=== PATIENT | male | born 1940 ===

== ENCOUNTER 2017-07-18 16:55 | Emergency (ER) | payer MEDICARE, OTHER ==
[2017-07-18 16:55] VITALS: BMI 30.2
[2017-07-18 17:18] VITALS: BP 147/85; PULSE 109; RESP 16; TEMP 98.2; O2SAT 99
--- NOTE | 2017-07-18 18:17 | ED PDOC ---
HPI: CCC, URI, Sore Throat Time Seen by Provider: 07/18/17 17:58 Chief Complaint (Nursing): Cough, Cold, Congestion Chief Complaint (Provider): COUGH History Per: Patient Additional Complaint(s): To ED for evaluation of cough, general body aches, fever x 1 week. Last took Tylenol at 3pm. Also taking OTC cough medication without relief. Past Medical History Reviewed: Nursing Documentation, Vital Signs Vital Signs: Last Vital Signs Temp 98.2 F 07/18/17 17:11 Pulse 109 H 07/18/17 17:11 Resp 16 07/18/17 17:11 BP 147/85 07/18/17 17:11 Pulse Ox 99 07/18/17 18:17 - Medical History PMH: Anxiety (No medication for anxiety prescribed by MD), Arthritis, Asthma, Bronchitis, COPD, Rheumatoid Arthritis Denies: CHF, HIV, HTN, Hypercholesterolemia, Hypothyroidism, Chronic Kidney Disease - Family History Family History: States: Unknown Family Hx - Living Arrangements Living Arrangements: With Family - Social History Current smoker - smoking cessation education provided: No Alcohol: Social Drugs: Denies - Home Medications Home Medications: Ambulatory Orders Medication Instructions Recorded Fluticasone/Salmeterol 100/50 1 - 2 puff INH DAILY PRN 03/24/14 [Advair Diskus 100/50] Montelukast [Singulair] 10 mg PO DAILY 06/28/14 Docusate [Colace] 100 mg PO DAILY #0 cap 05/25/15 Enoxaparin [Lovenox] 40 mg SC DAILY #0 syr 05/25/15 Lactulose [Enulose] 10 gm PO DAILY PRN #0 udc 05/25/15 Ondansetron [Zofran Inj] 4 mg IVP Q6H PRN 05/25/15 Pantoprazole [Protonix EC Tab] 40 mg PO DAILY #0 ect 05/25/15 Simethicone [Mylicon Chew Tab] 80 mg PO TID PRN 05/25/15 oxyCODONE/Acetaminophen [Percocet 2 tab PO Q4H PRN 05/25/15 5/325 mg Tab] Ferrous Sulfate [Feosol] 325 mg PO BID #0 tab 06/06/15 Furosemide [Lasix] 20 mg PO DAILY #0 tab 06/06/15 oxyCODONE/Acetaminophen [Percocet 1 tab PO Q6 PRN #16 tab 02/12/16 5/325 mg Tab] Azithromycin [Zithromax] 500 mg PO DAILY #6 tab 07/18/17 Methylprednisolone [Medrol Dose 4 mg PO DAILY #21 mg 07/18/17 Pack (21 tabs)] Promethazine HCl/Codeine 5 ml PO HS #80 ml 07/18/17 [Prometh-Codein 6.25-10 mg/5 ml] - Allergies Allergies/Adverse Reactions: Allergies Allergy/AdvReac Type Severity Reaction Status Date / Time No Known Allergies Allergy Verified 07/18/17 17:11 Review of Systems ROS Statement: Except As Marked, All Systems Reviewed And Found Negative ENT: Positive for: Nose Congestion Respiratory: Positive for: Cough Physical Exam - Reviewed Nursing Documentation Reviewed: Yes Vital Signs Reviewed: Yes - Physical Exam Appears: Positive for: Well, Non-toxic, No Acute Distress Head Exam: Positive for: ATRAUMATIC, NORMAL INSPECTION, NORMOCEPHALIC Skin: Positive for: Normal Color, Warm, DRY Eye Exam: Positive for: EOMI, Normal appearance, PERRL ENT: Positive for: Normal ENT Inspection Neck: Positive for: Normal, Painless ROM Cardiovascular/Chest: Positive for: Regular Rate, Rhythm Respiratory: Positive for: CNT, Normal Breath Sounds Gastrointestinal/Abdominal: Positive for: Normal Exam, Bowel Sounds, Soft Back: Positive for: Normal Inspection Extremity: Positive for: Normal ROM Neurologic/Psych: Positive for: Alert, Oriented - ECG O2 Sat by Pulse Oximetry: 99 Medical Decision Making Medical Decision Making: Flu (-) CXR: NAD, as read by PINKY Pt afebrile while in ED Pt educated on URI virus and supportive care measures discussed Advised to follow up with PMD, return to ED wit any concerns Disposition - Clinical Impression Clinical Impression: Upper respiratory infection - Patient ED Disposition Is Patient to be Admitted: No - Disposition Disposition: Routine/Home Disposition Time: 20:00 Condition: STABLE Prescriptions: Azithromycin [Zithromax] 500 mg PO DAILY #6 tab Methylprednisolone [Medrol Dose Pack (21 tabs)] 4 mg PO DAILY #21 mg Promethazine HCl/Codeine [Prometh-Codein 6.25-10 mg/5 ml] 5 ml PO HS #80 ml Instructions: Upper Respiratory Infection (ED) Forms: Gusto (Thai) Print Language: DIVEHI
--- NOTE | 2017-07-19 15:04 | RAD ---
HISTORY: fever and cough COMPARISON: 05/11/2015 TECHNIQUE: Chest PA and lateral FINDINGS: LUNGS: No active pulmonary disease. PLEURA: Chronic minimal blunting of both costophrenic angles. Likely pleural thickening. CARDIOVASCULAR: Normal. OSSEOUS STRUCTURES: No significant abnormalities. VISUALIZED UPPER ABDOMEN: Normal. OTHER FINDINGS: None. IMPRESSION: No active disease.
== END 2017-07-18 20:20 | disposition home or self-care (01) ==
LOC: H.ER 16:55
DX: J06.9 Acute upper respiratory infection, unspecified (principal); F41.9 Anxiety disorder, unspecified

== ENCOUNTER 2017-09-21 09:03 | Inpatient (IN) | payer MEDICARE ==
[2017-09-21 09:03] VITALS: BMI 30.2
[2017-09-21] MEDS ORDERED: Sodium Chloride 0.9% 1,000 ML IV STA (10:18)
--- NOTE | 2017-09-21 10:27 | ED PDOC ---
HPI: Abdomen Time Seen by Provider: 09/21/17 10:07 Chief Complaint (Nursing): GI Problem Chief Complaint (Provider): abdominal pain History Per: Patient History/Exam Limitations: no limitations Onset/Duration Of Symptoms: Days (1) Current Symptoms Are (Timing): Still Present Context: Food Severity: Moderate Location Of Pain/Discomfort: Epigastric, Periumbilical Quality Of Discomfort: Sharp Associated Symptoms: Nausea, Vomiting, Loss Of Appetite. denies: Diarrhea, Back Pain, Constipation, Urinary Symptoms Exacerbating Factors: Food Alleviating Factors: None Last Bowel Movement: Today Additional Complaint(s): 76yo male c/o sudden onset upper abdominal pain radiating to mid abdomen since this morning, associated w 3 episodes nonbloody vomiting, denies diarrhea, fever or syncope. (note told triage pain since thursday told MD pain since this morning). Past Medical History Reviewed: Historical Data, Nursing Documentation, Vital Signs Vital Signs: Last Vital Signs Temp 97.8 F 09/21/17 09:28 Pulse 67 09/21/17 09:28 Resp 20 09/21/17 09:28 BP 172/92 H 09/21/17 09:28 Pulse Ox 96 09/21/17 16:19 - Medical History PMH: Anxiety (No medication for anxiety prescribed by MD), Arthritis, Asthma, Bronchitis, COPD, Rheumatoid Arthritis Denies: CHF, HIV, HTN, Hypercholesterolemia, Hypothyroidism, Chronic Kidney Disease - Surgical History Other surgeries: hip/knee/ bleeding ulcer 40+yrs ago - Family History Family History: States: Unknown Family Hx - Social History Current smoker - smoking cessation education provided: No - Home Medications Home Medications: Ambulatory Orders Medication Instructions Recorded Fluticasone/Salmeterol 100/50 1 - 2 puff INH DAILY PRN 03/24/14 [Advair Diskus 100/50] Montelukast [Singulair] 10 mg PO DAILY 06/28/14 Docusate [Colace] 100 mg PO DAILY #0 cap 05/25/15 Enoxaparin [Lovenox] 40 mg SC DAILY #0 syr 05/25/15 Lactulose [Enulose] 10 gm PO DAILY PRN #0 udc 05/25/15 Ondansetron [Zofran Inj] 4 mg IVP Q6H PRN 05/25/15 Pantoprazole [Protonix EC Tab] 40 mg PO DAILY #0 ect 05/25/15 Simethicone [Mylicon Chew Tab] 80 mg PO TID PRN 05/25/15 oxyCODONE/Acetaminophen [Percocet 2 tab PO Q4H PRN 05/25/15 5/325 mg Tab] Ferrous Sulfate [Feosol] 325 mg PO BID #0 tab 06/06/15 Furosemide [Lasix] 20 mg PO DAILY #0 tab 06/06/15 oxyCODONE/Acetaminophen [Percocet 1 tab PO Q6 PRN #16 tab 02/12/16 5/325 mg Tab] Azithromycin [Zithromax] 500 mg PO DAILY #6 tab 07/18/17 Methylprednisolone [Medrol Dose 4 mg PO DAILY #21 mg 07/18/17 Pack (21 tabs)] Promethazine HCl/Codeine 5 ml PO HS #80 ml 07/18/17 [Prometh-Codein 6.25-10 mg/5 ml] - Allergies Allergies/Adverse Reactions: Allergies Allergy/AdvReac Type Severity Reaction Status Date / Time No Known Allergies Allergy Verified 07/18/17 17:11 Review of Systems Constitutional: Positive for: Malaise. Negative for: Fever, Chills ENT: Negative for: Throat Pain Cardiovascular: Negative for: Chest Pain Respiratory: Negative for: Cough Gastrointestinal: Positive for: Nausea, Vomiting, Abdominal Pain. Negative for : Diarrhea, Constipation Genitourinary Male: Negative for: Dysuria, Incontinence Musculoskeletal: Negative for: Neck Pain Skin: Negative for: Rash, Lesions Neurological: Negative for: Weakness, Numbness, Confusion Psych: Negative for: Depression Physical Exam - Reviewed Nursing Documentation Reviewed: Yes Vital Signs Reviewed: Yes - Physical Exam Appears: Positive for: Uncomfortable (vomiting) Head Exam: Positive for: ATRAUMATIC, NORMAL INSPECTION, NORMOCEPHALIC Skin: Positive for: Normal Color, Warm, DRY Eye Exam: Positive for: EOMI, Normal appearance, PERRL ENT: Positive for: Normal ENT Inspection Neck: Positive for: Normal, Painless ROM Cardiovascular/Chest: Positive for: Regular Rate, Rhythm Respiratory: Positive for: CNT, Normal Breath Sounds Gastrointestinal/Abdominal: Positive for: Soft, Tenderness (upper abd tenderness ) Back: Positive for: Normal Inspection Extremity: Positive for: Other (chronic loss ROM LE). Negative for: Tenderness Neurologic/Psych: Positive for: Alert, Oriented. Negative for: Motor/Sensory Deficits - Laboratory Results Result Diagrams: 09/21/17 11:00 09/21/17 11:00 Urine dip results: Positive for: Blood. Negative for: Leukocyte Esterase - ECG O2 Sat by Pulse Oximetry: 96 Medical Decision Making Medical Decision Making: workup for upper abd pain w vomiting initiated labs reviewed, clinically unremarkable patient required repeat doses of morphine for pain control Pepcid, antiemetic also ordered, IVF bolus arranged. CT abd pelv obtained This CT exam was performed using one or more of the following dose reduction techniques: Automated exposure control, adjustment of the mA and/or kV according to patient size, and/or use of iterative reconstruction technique. 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 LIVER: Unremarkable. No gross lesion or ductal dilatation. GALLBLADDER AND BILE DUCTS: Unremarkable. PANCREAS: Unremarkable. No gross lesion or ductal dilatation. SPLEEN: Unremarkable. ADRENALS: Unremarkable. No mass. KIDNEYS AND URETERS: Unremarkable. No hydronephrosis. No solid mass. VASCULATURE: Unremarkable. No aortic aneurysm. BOWEL: Diverticulosis without an acute inflammatory component or other associated pathologic process. APPENDIX: Normal appendix. PERITONEUM: Unremarkable. No free fluid. No free air. LYMPH NODES: Unremarkable. No enlarged lymph nodes. BLADDER: Unremarkable. REPRODUCTIVE: Unremarkable. BONES: No acute fracture. OTHER FINDINGS: None. IMPRESSION: No acute findings related to/accounting for the clinical presentation. Additional benign and/or incidental findings described above patient required additional dose morphine for pain Protonix also ordered Given intractable pain, age, multiple doses narcotics to satisfy pain, will place Obs [facility]. D/w Dr Flores 350pm, requested Dr Leeanna batres, called placed for awareness. Disposition - Clinical Impression Clinical Impression: Abdominal pain - Patient ED Disposition Is Patient to be Admitted: Yes Counseled Patient/Family Regarding: Studies Performed, Diagnosis - Disposition Disposition Time: 15:01 Condition: FAIR - Pt Status Changed To: Hospital Disposition Of: Observation
[2017-09-21 11:11] LABS: BASO % 0.5 % (0.0-2.0); EOS # 0.1 K/uL (0.0-0.7); EOS % 0.8 % (0.0-4.0); HEMOGLOBIN 15.7 g/dL (12.0-18.0); LYMPH # 1.1 K/uL (1.0-4.3); LYMPH % 10.8 % (20.0-40.0); MEAN CELL VOLUME 94.1 fl (80.0-94.0); MEAN CORPUSCULAR HEMOGLOBIN 32.3 pg (27.0-31.0); MEAN CORPUSCULAR HGB CONC 34.3 g/dL (33.0-37.0); MEAN PLATELET VOLUME 8.7 fl (7.2-11.7); MONO # 0.6 K/uL (0.0-0.8); MONO % 5.6 % (0.0-10.0); NEUT # 8.4 K/uL (1.8-7.0); NEUT % 82.3 % (50.0-75.0); NRBC % 0.1 % (0.0-0.0); RBC 4.87 Mil/uL (4.40-5.90); RED CELL DISTRIBUTION WIDTH 14.7 % (11.5-14.5); WHITE BLOOD COUNT 10.1 K/uL (4.8-10.8)
[2017-09-21 11:14] LABS: GFR AFRICAN-AMERICAN > 60; GFR NON-AFRICAN AMERICAN > 60; LIPASE 78 U/L (23-300)
[2017-09-21] MEDS ORDERED: Iohexol 240 (50 ml) PO ONE (11:35)
--- NOTE | 2017-09-21 11:35 | CARD ---
APPROVED REPORT EKG Measurement Heart [id number] <Conclusion> Normal sinus rhythm with sinus arrhythmia Normal ECG
[2017-09-21] MEDS ORDERED: Iohexol 240 (50 ml) ONE (11:45)
[2017-09-21 12:25] LABS: CALCIUM 8.8 mg/dL (8.4-10.2)
[2017-09-21 12:26] LABS: ALBUMIN 4.2 g/dL (3.5-5.0); ALT/SGPT 66 U/L (21-72); AST/SGOT 50 U/L (17-59); BLOOD UREA NITROGEN 16 mg/dl (9-20)
[2017-09-21] MEDS ORDERED: Iohexol 300 100 ML IJ ONE (12:56)
--- NOTE | 2017-09-21 14:36 | CT ---
PROCEDURE: CT Abdomen and Pelvis with contrast HISTORY: Upper abdominal pain, vomiting COMPARISON: None. TECHNIQUE: Contrast dose: 98 cc Omnipaque 300. Radiation dose: Total exam DLP = 1145.32 mGy-cm. This CT exam was performed using one or more of the following dose reduction techniques: Automated exposure control, adjustment of the mA and/or kV according to patient size, and/or use of iterative reconstruction technique. 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 LIVER: Unremarkable. No gross lesion or ductal dilatation. GALLBLADDER AND BILE DUCTS: Unremarkable. PANCREAS: Unremarkable. No gross lesion or ductal dilatation. SPLEEN: Unremarkable. ADRENALS: Unremarkable. No mass. KIDNEYS AND URETERS: Unremarkable. No hydronephrosis. No solid mass. VASCULATURE: Unremarkable. No aortic aneurysm. BOWEL: Diverticulosis without an acute inflammatory component or other associated pathologic process. APPENDIX: Normal appendix. PERITONEUM: Unremarkable. No free fluid. No free air. LYMPH NODES: Unremarkable. No enlarged lymph nodes. BLADDER: Unremarkable. REPRODUCTIVE: Unremarkable. BONES: No acute fracture. OTHER FINDINGS: None. IMPRESSION: No acute findings related to/accounting for the clinical presentation. Additional benign and/or incidental findings described above.
--- NOTE | 2017-09-21 17:00 | CP.PCM.CON ---
History of Present Illness - History of Present Illness History of Present Illness: GI Fellow PGY 4 consult Note This is a 76yM with pmhx of RA, PUD with GI bleed in 1963, Asthma/COPD, Chronic opioid use presenting with complaints of sudden onset of epigastric pain. Pt reports no prior hx of abdominal pain, now with acute epigastric stabbing pain, radiating to back and throughout the abdomen. Pt was given IV morphine with no relief. Pt also had 3 episodes of vomiting, nonbloody in ER, pt reports he vomited his dinner which consisted of rice and beans. No one else is sick around him, it was a home cooked meal. No recent travel or abx use. Denies any diarrhea, constipation, hematemesis, rectal bleeding. He takes Ibuprofen 2 tabs weekly for many years and reports taking omeprazole daily. He endorses a hx of GI bleeding requiring intubation and was medically treated with no surgical intervention. Pt is a poor historian but reports EGD/Colonoscopy many years ago at [facility] but does not remember the results, denies hx of h.pylori. ROS: A 12 pt ROS was negative except as above PmHx: As stated above PsHx: Denies SHx: denies tobacco, hx of heavy etoh but quit 20yrs ago, denies drugs FHx: denies colon cancer Past Patient History - Past Medical History & Family History Past Medical History?: Yes - Past Social History Smoking Status: Never Smoked - CARDIAC Hx Congestive Heart Failure: No Hx Hypercholesterolemia: No Hx Hypertension: No - PULMONARY Hx Asthma: Yes Hx Bronchitis: Yes Hx Chronic Obstructive Pulmonary Disease (COPD): Yes - NEUROLOGICAL Hx Neurological Disorder: No - HEENT Other/Comment: Allergic Rhinitis - RENAL Hx Chronic Kidney Disease: No - ENDOCRINE/METABOLIC Hx Hypothyroidism: No - HEMATOLOGICAL/ONCOLOGICAL Hx Human Immunodeficiency Virus (HIV): No - INTEGUMENTARY Hx Dermatological Problems: No - MUSCULOSKELETAL/RHEUMATOLOGICAL Hx Arthritis: Yes Hx Rheumatoid Arthritis: Yes - GASTROINTESTINAL Hx Gastrointestinal Disorders: Yes Hx Colitis: Yes Hx Gastroesophageal Reflux: Yes - GENITOURINARY/GYNECOLOGICAL Hx Genitourinary Disorders: Yes - PSYCHIATRIC Hx Anxiety: Yes (No medication for anxiety prescribed by MD) - SURGICAL HISTORY Hx Joint Replacement: Yes (RT TOTAL HIP REPLACEMENT JUL 1994. LEFT TOTAL KNEE REPLACEMENT DECEMBER 1994) Hx Orthopedic Surgery: Yes (Right THR 1994, Left TKR 1994) Other/Comment: - HEMORROIDECTOMY X 2. - NASAL POLYPECTOMY. - EPIDURAL INJECTION X. 4. - RT AND LT TOES SURGERIES. - REVISION RIGHT THR 05/21/2015 - ANESTHESIA Hx Anesthesia: Yes Hx Anesthesia Reactions: No Hx Malignant Hyperthermia: No Meds Allergies/Adverse Reactions: Allergies Allergy/AdvReac Type Severity Reaction Status Date / Time No Known Allergies Allergy Verified 07/18/17 17:11 - Medications Medications: Current Medications Ondansetron HCl (Zofran Inj) 4 mg IVP Q6 PRN PRN Reason: Nausea/Vomiting Pantoprazole Sodium (Protonix Inj) 40 mg IVP DAILY RJ Sucralfate (Carafate Tab) 1 gm PO QID RJ Physical Exam - Constitutional Appears: Non-toxic, No Acute Distress - Head Exam Head Exam: ATRAUMATIC, NORMAL INSPECTION, NORMOCEPHALIC - Eye Exam Eye Exam: EOMI, Normal appearance, PERRL Pupil Exam: PERRL - ENT Exam ENT Exam: Mucous Membranes Moist, Normal Exam - Neck Exam Neck exam: Positive for: Full Rom, Normal Inspection - Respiratory Exam Respiratory Exam: Clear to Auscultation Bilateral, NORMAL BREATHING PATTERN - Cardiovascular Exam Cardiovascular Exam: REGULAR RHYTHM, RRR, +S1, +S2 - GI/Abdominal Exam GI & Abdominal Exam: Normal Bowel Sounds, Soft, Tenderness. absent: Distended, Firm, Guarding, Organomegaly, Rigid - Rectal Exam Rectal Exam: Deferred - Extremities Exam Extremities exam: Positive for: full ROM, normal inspection - Back Exam Back exam: NORMAL INSPECTION - Neurological Exam Neurological exam: Alert, Oriented x3 - Psychiatric Exam Psychiatric exam: Normal Affect, Normal Mood - Skin Skin Exam: Dry, Intact, Normal Color, Warm Results - Vital Signs Recent Vital Signs: Last Vital Signs Temp 97.8 F 09/21/17 09:28 Pulse 67 09/21/17 09:28 Resp 20 09/21/17 09:28 BP 172/92 H 09/21/17 09:28 Pulse Ox 96 09/21/17 16:46 - Labs Result Diagrams: 09/21/17 11:00 09/21/17 11:00 Labs: Laboratory Results - last 24 hr 09/21/17 09/21/17 09/21/17 11:00 11:00 15:12 WBC 10.1 RBC 4.87 Hgb 15.7 Hct 45.9 MCV 94.1 H D MCH 32.3 H MCHC 34.3 RDW 14.7 H Plt Count 175 D MPV 8.7 Neut % (Auto) 82.3 H Lymph % (Auto) 10.8 L Andrews % (Auto) 5.6 Eos % (Auto) 0.8 Baso % (Auto) 0.5 Neut # (Auto) 8.4 H Lymph # (Auto) 1.1 Andrews # (Auto) 0.6 Eos # (Auto) 0.1 Baso # (Auto) 0.0 Sodium 144 Potassium 5.0 Chloride 103 Carbon Dioxide 26 Anion Gap 20 BUN 16 Creatinine 1.0 Est GFR ( Amer) > 60 Est GFR (Non-Af Amer) > 60 Random Glucose 148 H Calcium 8.8 Total Bilirubin 0.7 AST 50 ALT 66 Alkaline Phosphatase 94 Troponin I < 0.0120 Total Protein 8.3 H Albumin 4.2 Globulin 4.1 H Albumin/Globulin Ratio 1.0 Lipase 78 Assessment & Plan - Assessment and Plan (Free Text) Assessment: This is a 76yM presenting with complaints of abdominal pain. 1. Abdominal pain 2. Nausea and vomiting 3. Hx of PUD with GI bleed Plan: -Continue supportive care with pain control and anti-emetics -Abdominal pain likely from PUD with NSAID use and hx of PUD maybe 2/2 H.pylori -Avoid NSAIDs -Will order IV PPI daily, carafate qid -CT imaging reviewed with acute GI pathology -Order Abd US to r/o gallstones -Clear liquid diet -NPO after midnight for possible EGD if continues to have abdominal pain -IVF hydration -Bowel regimen with miralax daily with pain medication -Will continue to follow closely Discussed case with Dr. Durán and he agrees with the above mentioned plan of care.
[2017-09-21 17:12] LABS: URINE BILIRUBIN NEGATIVE (NEGATIVE); URINE BLOOD NEGATIVE (NEGATIVE); URINE CLARITY CLEAR (Clear); URINE COLOR STRAW (YELLOW); URINE GLUCOSE (UA) 150 mg/dL (Normal); URINE LEUKOCYTE ESTERASE NEG Leu/uL (Negative); URINE PROTEIN NEGATIVE (NEGATIVE); URINE UROBILINOGEN 0.2-1.0 mg/dL (0.2-1.0)
[2017-09-21] MEDS: POLYETHYLENE GLYCOL 3350 17 GM/Dose PACKET PO SCH (18:36)
[2017-09-21] MEDS ORDERED: Albuterol-Ipratrop 3 mg / 0.5 (3 ml) UD INH PRN (21:38)
[2017-09-21] MEDS ORDERED: Hydrocortisone 2.5% (Rectal) CREAM PR PRN (21:41)
--- NOTE | 2017-09-21 22:11 | CP.PCM.HP ---
History of Present Illness - History of Present Illness History of Present Illness: 76 y/o M, multiple chronic medical condition including Hx of PUD with GI bleeding in 1963, came to ER [facility], today 09/21/17 to be evaluated for non alleviated abdominal pain that began very mild 2 days [employer], with sudden worsening onset of pain on DOA. Pt c/o of worsening generalized abdominal pain in AM DOA, more prominent to mid abdomen, pain described as sharp, stabbing, moderate to severe intensity 7:10, associated to nausea, vomiting (non bloody, non bilious) and radiated to back. Worsening symptoms: Pt vomiting x3 while in the ER, chronic body pain 2nd to R/ A, O/A. Hx of COPD with SOB on and off. Aggravated factor: Food, movements/exercise. Pt denied: Constipation, rectal bleeding, urinary symptoms, fever, chills, dizziness, syncope, CP, palpitations, cough, sick contact, recent travel out of [facility]. Abd/Pelv. CT: No acute findings. EKG: Normal sinus rhythm with sinus arrhythmia. Present on Admission - Present on Admission Any Indicators Present on Admission: No Review of Systems - Constitutional Constitutional: Malaise - EENT Eyes: Requires Corrective Lenses Ears: Other (negative) Nose/Mouth/Throat: Other (negative) - Cardiovascular Cardiovascular: Other (negative) - Respiratory Respiratory: Other (negative) - Gastrointestinal Gastrointestinal: Abdominal Pain, Nausea, Vomiting - Genitourinary Genitourinary: Other (negative) - Musculoskeletal Musculoskeletal: Arthralgias, Back Pain - Integumentary Integumentary: Other (negative) - Neurological Neurological: Other (negative) - Psychiatric Psychiatric: Other (negative) - Endocrine Endocrine: Other (negative) - Hematologic/Lymphatic Hematologic: Other (negative) Past Patient History - Past Medical History & Family History Past Medical History?: Yes Pertinent Family History: Unknown - Past Social History Smoking Status: Never Smoked Alcohol: Other (heavy ETHO 20 yrs ago.) Drugs: Denies - CARDIAC Hx Cardiac Disorders: No Hx Congestive Heart Failure: No Hx Hypercholesterolemia: No Hx Hypertension: No - PULMONARY Hx Respiratory Disorders: Yes Hx Asthma: Yes Hx Bronchitis: Yes Hx Chronic Obstructive Pulmonary Disease (COPD): Yes - NEUROLOGICAL Hx Neurological Disorder: No - HEENT Hx HEENT Problems: Yes Other/Comment: Allergic Rhinitis - RENAL Hx Chronic Kidney Disease: No - ENDOCRINE/METABOLIC Hx Endocrine Disorders: No Hx Hypothyroidism: No - HEMATOLOGICAL/ONCOLOGICAL Hx Blood Disorders: No Hx Human Immunodeficiency Virus (HIV): No - INTEGUMENTARY Hx Dermatological Problems: No - MUSCULOSKELETAL/RHEUMATOLOGICAL Hx Musculoskeletal Disorders: Yes Hx Arthritis: Yes Hx Back Pain: Yes Hx Rheumatoid Arthritis: Yes - GASTROINTESTINAL Hx Gastrointestinal Disorders: Yes Hx Colitis: Yes Hx Constipation: Yes Hx Gastroesophageal Reflux: Yes - GENITOURINARY/GYNECOLOGICAL Hx Genitourinary Disorders: No - PSYCHIATRIC Hx Psychophysiologic Disorder: Yes Hx Anxiety: Yes (No medication for anxiety prescribed by MD) - SURGICAL HISTORY Hx Surgeries: Yes Hx Joint Replacement: Yes (RT TOTAL HIP REPLACEMENT JUL 1994. LEFT TOTAL KNEE REPLACEMENT DECEMBER 1994) Hx Orthopedic Surgery: Yes (Right THR 1994, Left TKR 1994) Other/Comment: - HEMORROIDECTOMY X 2. - NASAL POLYPECTOMY. - EPIDURAL INJECTION X. 4. - RT AND LT TOES SURGERIES. - REVISION RIGHT THR 05/21/2015 - ANESTHESIA Hx Anesthesia: Yes Hx Anesthesia Reactions: No Hx Malignant Hyperthermia: No Meds Allergies/Adverse Reactions: Allergies Allergy/AdvReac Type Severity Reaction Status Date / Time No Known Allergies Allergy Verified 07/18/17 17:11 Physical Exam - Constitutional Appears: No Acute Distress - Head Exam Head Exam: NORMAL INSPECTION - Eye Exam Eye Exam: PERRL - ENT Exam ENT Exam: Normal Exam - Neck Exam Neck exam: Positive for: Normal Inspection - Respiratory Exam Respiratory Exam: Decreased Breath Sounds (at bases) - Cardiovascular Exam Cardiovascular Exam: REGULAR RHYTHM - GI/Abdominal Exam GI & Abdominal Exam: Normal Bowel Sounds, Soft, Tenderness (RUQ) - Extremities Exam Extremities exam: Positive for: tenderness (mild R-L hip) - Back Exam Back exam: tenderness (L-S) - Neurological Exam Neurological exam: Alert, CN II-XII Intact, Oriented x3 - Psychiatric Exam Psychiatric exam: Normal Mood - Skin Skin Exam: Warm Results - Vital Signs Recent Vital Signs: Last Vital Signs Temp 99.2 F 09/21/17 20:02 Pulse 95 H 09/21/17 20:02 Resp 20 09/21/17 20:02 BP 163/94 H 09/21/17 20:02 Pulse Ox 96 09/21/17 20:02 reviewed Hali - Labs Result Diagrams: 09/23/17 05:45 09/22/17 06:00 Labs: Laboratory Results - last 24 hr 09/21/17 09/21/17 09/21/17 11:00 11:00 15:12 WBC 10.1 RBC 4.87 Hgb 15.7 Hct 45.9 MCV 94.1 H D MCH 32.3 H MCHC 34.3 RDW 14.7 H Plt Count 175 D MPV 8.7 Neut % (Auto) 82.3 H Lymph % (Auto) 10.8 L Posey % (Auto) 5.6 Eos % (Auto) 0.8 Baso % (Auto) 0.5 Neut # (Auto) 8.4 H Lymph # (Auto) 1.1 Posey # (Auto) 0.6 Eos # (Auto) 0.1 Baso # (Auto) 0.0 Sodium 144 Potassium 5.0 Chloride 103 Carbon Dioxide 26 Anion Gap 20 BUN 16 Creatinine 1.0 Est GFR ( Amer) > 60 Est GFR (Non-Af Amer) > 60 Random Glucose 148 H Calcium 8.8 Total Bilirubin 0.7 AST 50 ALT 66 Alkaline Phosphatase 94 Troponin I < 0.0120 Total Protein 8.3 H Albumin 4.2 Globulin 4.1 H Albumin/Globulin Ratio 1.0 Lipase 78 Urine Color Urine Clarity Urine pH Ur Specific [place] Urine Protein Urine Glucose (UA) Urine Ketones Urine Blood Urine Nitrate Urine Bilirubin Urine Urobilinogen Ur Leukocyte Esterase Urine RBC (Auto) Urine Microscopic WBC 09/21/17 16:40 WBC RBC Hgb Hct MCV MCH MCHC RDW Plt Count MPV Neut % (Auto) Lymph % (Auto) Posey % (Auto) Eos % (Auto) Baso % (Auto) Neut # (Auto) Lymph # (Auto) Posey # (Auto) Eos # (Auto) Baso # (Auto) Sodium Potassium Chloride Carbon Dioxide Anion Gap BUN Creatinine Est GFR ( Amer) Est GFR (Non-Af Amer) Random Glucose Calcium Total Bilirubin AST ALT Alkaline Phosphatase Troponin I Total Protein Albumin Globulin Albumin/Globulin Ratio Lipase Urine Color Straw Urine Clarity Clear Urine pH 7.0 Ur Specific [place] 1.026 Urine Protein Negative Urine Glucose (UA) 150 Urine Ketones Negative Urine Blood Negative Urine Nitrate Negative Urine Bilirubin Negative Urine Urobilinogen 0.2-1.0 Ur Leukocyte Esterase Neg Urine RBC (Auto) 3 Urine Microscopic WBC < 1 reviewed J.P. - EKG Data EKG comments: reviewed J.P. - Imaging and Cardiology CT scan - abdomen Status: Report reviewed by me (Hali) CT scan - pelvis Status: Report reviewed by me (Hali) Assessment & Plan (1) Abdominal pain Status: Acute Priority: High (2) Nausea & vomiting Status: Acute Priority: High (3) History of peptic ulcer disease Status: Chronic (4) Lumbago Status: Chronic Priority: High (5) RA (rheumatoid arthritis) Status: Chronic Priority: High (6) History of COPD Status: Chronic Priority: Medium - Assessment and Plan (Free Text) Plan: F/U Abd. U-S, Continue Carafate, Protonix, Morphine, Duoneb Tx, Zofran and rest of Tx. NPO after midnight for possible EGD tomorrow. GI consult appreciated. - Date & Time Date: 09/21/17 Time: 14:00
[2017-09-22 06:11] LABS: BASO # 0.1 K/uL (0.0-0.2); BASO % 0.6 % (0.0-2.0); EOS % 0.2 % (0.0-4.0); HEMOGLOBIN 15.2 g/dL (12.0-18.0); LYMPH # 1.6 K/uL (1.0-4.3); LYMPH % 9.6 % (20.0-40.0); MEAN CELL VOLUME 92.6 fl (80.0-94.0); MEAN CORPUSCULAR HEMOGLOBIN 31.3 pg (27.0-31.0); MEAN CORPUSCULAR HGB CONC 33.8 g/dL (33.0-37.0); MEAN PLATELET VOLUME 7.6 fl (7.2-11.7); MONO # 1.7 K/uL (0.0-0.8); MONO % 9.8 % (0.0-10.0); NEUT # 13.5 K/uL (1.8-7.0); NEUT % 79.8 % (50.0-75.0); PLATELET COUNT 158 K/uL (130-400); RBC 4.85 Mil/uL (4.40-5.90); RED CELL DISTRIBUTION WIDTH 14.9 % (11.5-14.5); WHITE BLOOD COUNT 16.9 K/uL (4.8-10.8)
[2017-09-22 06:20] LABS: INR 1.2 (0.9-1.2); PARTIAL THROMBOPLASTIN TIME 29.8 Seconds (25.6-37.1); PROTHROMBIN TIME 13.1 Seconds (9.8-13.1)
[2017-09-22 06:34] LABS: LDL CHOLESTEROL 98 mg/dL (0-129)
[2017-09-22 06:35] LABS: ALB/GLOB RATIO 1.1 (1.0-2.1); ALBUMIN 4.1 g/dL (3.5-5.0); ALT/SGPT 69 U/L (21-72); AST/SGOT 44 U/L (17-59); BLOOD UREA NITROGEN 12 mg/dl (9-20); CALCIUM 8.7 mg/dL (8.4-10.2); GFR AFRICAN-AMERICAN > 60; GFR NON-AFRICAN AMERICAN > 60; HDL CHOLESTEROL 45 MG/DL (30-70)
[2017-09-22 06:36] LABS: T4 7.24 ug/dl (5.5-11.0)
[2017-09-22] MEDS: Budesonide 0.5 mg/2 ml Inhal Susp UD INH SCH ×2 (08:01→19:02)
--- NOTE | 2017-09-22 08:16 | CP.PCM.PN ---
Subjective - Date & Time of Evaluation Date of Evaluation: 09/22/17 Time of Evaluation: 07:55 - Subjective Subjective: GI Fellow PGY4 Progress Note Pt seen and evaluated at bedside, pt reports feeling a little better this am with decreased epigastric abdominal pain but reports RUQ pain. Pt was able to tolerate clear liquids last night with no further N/V. Pt took IV morphine last night and takes oxycodone 5mg bid at home for arthritis pain. ROS: A 12pt ROS was negative except as above. Objective - Vital Signs/Intake and Output Vital Signs (last 24 hours): Temp Pulse Resp BP Pulse Ox 98.7 F 83 20 151/74 H 97 09/22/17 08:08 09/22/17 08:08 09/22/17 08:08 09/22/17 08:08 09/22/17 08:08 - Medications Medications: Current Medications Albuterol/Ipratropium (Duoneb 3 Mg/0.5 Mg (3 Ml) Ud) 3 ml INH RQ6 PRN PRN Reason: Shortness of Breath Budesonide (Pulmicort Respules) 0.5 mg INH RBID [facility] Last Admin: 09/22/17 08:01 Dose: 0.5 mg Hydrocortisone (Anusol-Hc) 1 applic [place] Q12 PRN PRN Reason: Hemorrhoids Morphine Sulfate (Morphine) 2 mg IVP Q4 PRN PRN Reason: Pain, severe (8-10) Last Admin: 09/21/17 22:49 Dose: 2 mg Ondansetron HCl (Zofran Inj) 4 mg IVP Q6 PRN PRN Reason: Nausea/Vomiting Last Admin: 09/21/17 19:54 Dose: 4 mg Pantoprazole Sodium (Protonix Inj) 40 mg IVP DAILY [facility] Polyethylene Glycol (Miralax) 17 gm PO QPM [facility] Last Admin: 09/21/17 18:36 Dose: 17 gm Sucralfate (Carafate Tab) 1 gm PO ACHS [facility] Last Admin: 09/22/17 06:29 Dose: 1 gm - Labs Labs: 09/22/17 06:00 09/22/17 06:00 PT 13.1 Seconds (9.8-13.1) 09/22/17 06:00 INR 1.2 (0.9-1.2) 09/22/17 06:00 APTT 29.8 Seconds (25.6-37.1) 09/22/17 06:00 - Constitutional Appears: Non-toxic, No Acute Distress - Head Exam Head Exam: ATRAUMATIC, NORMAL INSPECTION, NORMOCEPHALIC - Eye Exam Eye Exam: EOMI, Normal appearance, PERRL Pupil Exam: NORMAL ACCOMODATION, PERRL - ENT Exam ENT Exam: Mucous Membranes Moist - Neck Exam Neck Exam: Full ROM - Respiratory Exam Respiratory Exam: Clear to Ausculation Bilateral, NORMAL BREATHING PATTERN - Cardiovascular Exam Cardiovascular Exam: REGULAR RHYTHM, RRR, +S1, +S2 - GI/Abdominal Exam GI & Abdominal Exam: Soft, Tenderness, Normal Bowel Sounds. absent: Distended, Firm, Guarding, Rigid, Organomegaly - Extremities Exam Extremities Exam: Full ROM, Normal Inspection - Back Exam Back Exam: NORMAL INSPECTION - Neurological Exam Neurological Exam: Alert, Awake, Oriented x3 - Psychiatric Exam Psychiatric exam: Normal Affect, Normal Mood - Skin Skin Exam: Dry, Intact, Normal Color, Warm Assessment and Plan - Assessment and Plan (Free Text) Assessment: This is a 76yM presenting with complaints of abdominal pain. 1. Abdominal pain 2. Nausea and vomiting 3. Hx of PUD with GI bleed Plan: -Continue supportive care with pain control and anti-emetics -Clinically improving epigastric abdominal pain, brisa mild nausea and no vomiting -Abdominal pain likely from PUD with NSAID use and hx of PUD maybe 2/2 H.pylori -Avoid NSAIDs -Continue IV PPI daily, carafate qid -CT imaging reviewed with no acute GI pathology -Abd US pending r/o gallstones vs cholecystitis with elevated WBC, LFTs wnl -NPO, awaiting Abd us results which if negative and pt with persistent pain will plan for EGD tomorrow -If abdominal US negative can start clear liquids today -IVF hydration -Bowel regimen with miralax daily with pain medication -Will continue to follow closely Case discussed with Dr. Delgadillo who agrees with above mentioned plan of care.
--- NOTE | 2017-09-22 08:47 | RAD ---
PROCEDURE: CHEST RADIOGRAPH, 1 VIEW HISTORY: possible EGD tomorrow COMPARISON: 07/18/2017 FINDINGS: LUNGS: Clear. PLEURA: No pneumothorax or pleural fluid seen. CARDIOVASCULAR: Normal. OSSEOUS STRUCTURES: No significant abnormalities. VISUALIZED UPPER ABDOMEN: Normal. OTHER FINDINGS: None. IMPRESSION: No active disease.
[2017-09-22 11:29] LABS: BANDS 2 % (0-2); LYMPHOCYTE 5 % (20-50); MONOCYTE 7 % (0-10); NEUTROPHIL 83 % (42-75); REACTIVE LYMPHOCYTES 3 % (0-0); TOTAL CELLS COUNTED 100
[2017-09-22 11:30] LABS: ANISOCYTOSIS SLIGHT; PLATELET ESTIMATE NORMAL (NORMAL)
--- NOTE | 2017-09-22 12:09 | US ---
HISTORY: r/o gallstones COMPARISON: None. TECHNIQUE: Sonographic evaluation of the abdomen. FINDINGS: LIVER: Measures 13.2 cm. Diffusely increased echogenicity of the liver parenchyma. Consistent with fatty infiltration. Smooth contour. No mass. No biliary dilatation. Normal hepatopetal portal venous flow demonstrated. GALLBLADDER: Cholelithiasis. No mural thickening. Trace pericholecystic fluid common nonspecific. Negative sonographic White sign. COMMON BILE DUCT: Measures 5 mm. No stones. No dilatation. PANCREAS: Unremarkable as visualized. No mass. No ductal dilatation. RIGHT KIDNEY: Measures 10.9cm. Normal echogenicity. No calculus, mass, or hydronephrosis. LEFT KIDNEY: Measures 10.9cm. Normal echogenicity. No calculus, mass, or hydronephrosis. SPLEEN: Normal in size and contour. No mass. AORTA: No aneurysmal dilatation. IVC: Unremarkable. OTHER FINDINGS: None. IMPRESSION: Cholelithiasis. Trace pericholecystic fluid. No mural thickening or sonographic White sign. Nonspecific findings. Fatty infiltration of the liver. No additional abnormality.
--- NOTE | 2017-09-22 16:47 | CP.PCM.PN ---
Subjective - Date & Time of Evaluation Date of Evaluation: 09/22/17 Time of Evaluation: 11:50 - Subjective Subjective: F/U Abdominal pain RUQ pain, mild nausea Objective - Vital Signs/Intake and Output Vital Signs (last 24 hours): Temp Pulse Resp BP Pulse Ox 97.6 F 84 20 140/81 95 09/22/17 15:52 09/22/17 15:52 09/22/17 15:52 09/22/17 15:52 09/22/17 15:52 - Medications Medications: Current Medications Albuterol/Ipratropium (Duoneb 3 Mg/0.5 Mg (3 Ml) Ud) 3 ml INH RQ6 PRN PRN Reason: Shortness of Breath Budesonide (Pulmicort Respules) 0.5 mg INH RBID [facility] Last Admin: 09/22/17 08:01 Dose: 0.5 mg Hydrocortisone (Anusol-Hc) [address] Q12 PRN PRN Reason: Hemorrhoids Morphine Sulfate (Morphine) 2 mg IVP Q4 PRN PRN Reason: Pain, severe (8-10) Last Admin: 09/22/17 16:11 Dose: 2 mg Ondansetron HCl (Zofran Inj) 4 mg IVP Q6 PRN PRN Reason: Nausea/Vomiting Last Admin: 09/21/17 19:54 Dose: 4 mg Pantoprazole Sodium (Protonix Inj) 40 mg IVP DAILY [facility] Last Admin: 09/22/17 09:46 Dose: 40 mg Polyethylene Glycol (Miralax) 17 gm PO QPM [facility] Last Admin: 09/21/17 18:36 Dose: 17 gm Sucralfate (Carafate Tab) 1 gm PO ACHS [facility] Last Admin: 09/22/17 16:14 Dose: 1 gm - Labs Labs: 09/22/17 06:00 09/22/17 06:00 PT 13.1 Seconds (9.8-13.1) 09/22/17 06:00 INR 1.2 (0.9-1.2) 09/22/17 06:00 APTT 29.8 Seconds (25.6-37.1) 09/22/17 06:00 - Constitutional Appears: No Acute Distress - Head Exam Head Exam: NORMAL INSPECTION - Eye Exam Eye Exam: PERRL Pupil Exam: PERRL - ENT Exam ENT Exam: Normal Exam - Neck Exam Neck Exam: Normal Inspection - Respiratory Exam Respiratory Exam: Decreased Breath Sounds (at bases), Rhonchi (scattered) - Cardiovascular Exam Cardiovascular Exam: REGULAR RHYTHM - GI/Abdominal Exam GI & Abdominal Exam: Soft, Tenderness (RUQ), Normal Bowel Sounds - Extremities Exam Extremities Exam: Tenderness (mild R-L hip) - Back Exam Back Exam: tenderness (L-S) - Neurological Exam Neurological Exam: Alert, CN II-XII Intact, Oriented x3 - Psychiatric Exam Psychiatric exam: Normal Mood - Skin Skin Exam: Warm Assessment and Plan (1) Abdominal pain Status: Acute (2) Nausea & vomiting Status: Acute (3) History of peptic ulcer disease Status: Chronic (4) Lumbago Status: Chronic (5) RA (rheumatoid arthritis) Status: Chronic (6) History of COPD Status: Chronic - Assessment and Plan (Free Text) Plan: continue Morphine , Zofran and rest of treatment , f/u Abdominal US report , if Negative EGD in AM
[2017-09-22] MEDS: POLYETHYLENE GLYCOL 3350 17 GM/Dose PACKET PO SCH (19:18)
[2017-09-23 06:30] LABS: HEMOGLOBIN 14.7 g/dL (12.0-18.0); MEAN CELL VOLUME 93.4 fl (80.0-94.0); MEAN CORPUSCULAR HEMOGLOBIN 32.1 pg (27.0-31.0); MEAN CORPUSCULAR HGB CONC 34.4 g/dL (33.0-37.0); RBC 4.59 Mil/uL (4.40-5.90); RED CELL DISTRIBUTION WIDTH 14.9 % (11.5-14.5); WHITE BLOOD COUNT 16.9 K/uL (4.8-10.8)
[2017-09-23] MEDS: Budesonide 0.5 mg/2 ml Inhal Susp UD INH SCH ×2 (07:47→19:10)
[2017-09-23] MEDS: Dextrose 5%/0.45% NS 1,000 ML IV SCH (13:31)
--- NOTE | 2017-09-23 14:06 | CP.PCM.PN ---
Subjective - Date & Time of Evaluation Date of Evaluation: 09/23/17 Time of Evaluation: 12:30 - Subjective Subjective: F/U Cholelithiasis. Pt with abdominal pain RUQ, nausea, occasional dry cough. Objective - Vital Signs/Intake and Output Vital Signs (last 24 hours): Temp Pulse Resp BP Pulse Ox 98.5 F 88 20 116/65 97 09/23/17 08:26 09/23/17 08:26 09/23/17 08:26 09/23/17 08:26 09/23/17 08:26 - Medications Medications: Current Medications Albuterol/Ipratropium (Duoneb 3 Mg/0.5 Mg (3 Ml) Ud) 3 ml INH RQ6 PRN PRN Reason: Shortness of Breath Last Admin: 09/23/17 07:47 Dose: 3 ml Budesonide (Pulmicort Respules) 0.5 mg INH RBID [facility] Last Admin: 09/23/17 07:47 Dose: 0.5 mg Hydrocortisone (Anusol-Hc) 1 applic [place] Q12 PRN PRN Reason: Hemorrhoids Dextrose/Sodium Chloride (Dextrose 5%/0.45% Ns 1000 Ml) 1,000 mls @ 80 mls/hr IV .[id number] [facility] Stop: 09/24/17 13:17 Last Admin: 09/23/17 13:31 Dose: 80 mls/hr Morphine Sulfate (Morphine) 2 mg IVP Q4 PRN PRN Reason: Pain, severe (8-10) Last Admin: 09/23/17 04:59 Dose: 2 mg Ondansetron HCl (Zofran Inj) 4 mg IVP Q6 PRN PRN Reason: Nausea/Vomiting Last Admin: 09/21/17 19:54 Dose: 4 mg Pantoprazole Sodium (Protonix Inj) 40 mg IVP DAILY [facility] Last Admin: 09/23/17 09:27 Dose: 40 mg Polyethylene Glycol (Miralax) 17 gm PO QPM [facility] Last Admin: 09/22/17 19:18 Dose: 17 gm Sucralfate (Carafate Tab) 1 gm PO ACHS [facility] Last Admin: 09/23/17 13:18 Dose: Not Given - Labs Labs: 09/23/17 05:45 09/22/17 06:00 PT 13.1 Seconds (9.8-13.1) 09/22/17 06:00 INR 1.2 (0.9-1.2) 09/22/17 06:00 APTT 29.8 Seconds (25.6-37.1) 09/22/17 06:00 - Constitutional Appears: No Acute Distress - Head Exam Head Exam: NORMAL INSPECTION - Eye Exam Eye Exam: PERRL - ENT Exam ENT Exam: Normal Exam - Neck Exam Neck Exam: Normal Inspection - Respiratory Exam Respiratory Exam: Decreased Breath Sounds (at bases), Rhonchi (scattered) - Cardiovascular Exam Cardiovascular Exam: REGULAR RHYTHM - GI/Abdominal Exam GI & Abdominal Exam: Tenderness (RUQ), Normal Bowel Sounds - Extremities Exam Extremities Exam: Tenderness (mild R-L hip) - Back Exam Back Exam: tenderness (L-S) - Neurological Exam Neurological Exam: Alert, CN II-XII Intact, Oriented x3 - Psychiatric Exam Psychiatric exam: Normal Mood - Skin Skin Exam: Warm Assessment and Plan (1) Abdominal pain Status: Acute (2) Nausea & vomiting Status: Acute (3) History of peptic ulcer disease Status: Chronic (4) Lumbago Status: Chronic (5) RA (rheumatoid arthritis) Status: Chronic (6) History of COPD Status: Chronic (7) Cholelithiasis Status: Acute - Assessment and Plan (Free Text) Plan: Continue NPO, IV fluid. To have Hida Scan today, if negative EGD tomorrow, if positive may need Lab-[facility]
--- NOTE | 2017-09-23 16:23 | CP.PCM.PN ---
Subjective - Date & Time of Evaluation Date of Evaluation: 09/23/17 Time of Evaluation: 16:22 - Subjective Subjective: some pain overnight Objective - Vital Signs/Intake and Output Vital Signs (last 24 hours): Temp Pulse Resp BP Pulse Ox 98.5 F 88 20 116/65 97 09/23/17 08:26 09/23/17 08:26 09/23/17 08:26 09/23/17 08:26 09/23/17 08:26 - Medications Medications: Current Medications Albuterol/Ipratropium (Duoneb 3 Mg/0.5 Mg (3 Ml) Ud) 3 ml INH RQ6 PRN PRN Reason: Shortness of Breath Last Admin: 09/23/17 07:47 Dose: 3 ml Budesonide (Pulmicort Respules) 0.5 mg INH RBID [facility] Last Admin: 09/23/17 07:47 Dose: 0.5 mg Hydrocortisone (Anusol-Hc) 1 applic [place] Q12 PRN PRN Reason: Hemorrhoids Dextrose/Sodium Chloride (Dextrose 5%/0.45% Ns 1000 Ml) 1,000 mls @ 80 mls/hr IV .[id number] [facility] Stop: 09/24/17 13:17 Last Admin: 09/23/17 13:31 Dose: 80 mls/hr Morphine Sulfate (Morphine) 2 mg IVP Q4 PRN PRN Reason: Pain, severe (8-10) Last Admin: 09/23/17 04:59 Dose: 2 mg Ondansetron HCl (Zofran Inj) 4 mg IVP Q6 PRN PRN Reason: Nausea/Vomiting Last Admin: 09/21/17 19:54 Dose: 4 mg Pantoprazole Sodium (Protonix Inj) 40 mg IVP DAILY [facility] Last Admin: 09/23/17 09:27 Dose: 40 mg Polyethylene Glycol (Miralax) 17 gm PO QPM [facility] Last Admin: 09/22/17 19:18 Dose: 17 gm Sucralfate (Carafate Tab) 1 gm PO ACHS [facility] Last Admin: 09/23/17 13:18 Dose: Not Given - Labs Labs: 09/23/17 05:45 09/22/17 06:00 PT 13.1 Seconds (9.8-13.1) 09/22/17 06:00 INR 1.2 (0.9-1.2) 09/22/17 06:00 APTT 29.8 Seconds (25.6-37.1) 09/22/17 06:00 - Head Exam Head Exam: NORMOCEPHALIC - Neck Exam Neck Exam: Normal Inspection - Respiratory Exam Respiratory Exam: Clear to Ausculation Bilateral, NORMAL BREATHING PATTERN - Cardiovascular Exam Cardiovascular Exam: REGULAR RHYTHM - GI/Abdominal Exam GI & Abdominal Exam: Soft, Tenderness, Normal Bowel Sounds Assessment and Plan - Assessment and Plan (Free Text) Assessment: 76 yo male with abd pain if HIDA negative, will plan for egd if HIDA positive, will consult surgery
--- NOTE | 2017-09-23 16:42 | NM ---
PROCEDURE: Nuclear Medicine Hepatobiliary Scan HISTORY: Cholelithiasis COMPARISON: 09/21/2017. Abdominal ultrasound TECHNIQUE: 5.82 mCi of technetium 99m Mebrofenin was administered intravenously. Planar images of the abdomen were obtained at 5 min intervals to 60 mins. Delayed images were also obtained. FINDINGS: LIVER: Timely and homogenous uptake. COMMON BILE DUCT: identified at 10 mins. GALLBLADDER: Not identified at 60 mins. SMALL BOWEL: Identified at 10 mins. IMPRESSION: Positive Hepatobiliary Scan. The cystic duct is occluded presumptive evidence for acute cholecystitis. .
[2017-09-23] MEDS: POLYETHYLENE GLYCOL 3350 17 GM/Dose PACKET PO SCH (17:06)
--- NOTE | 2017-09-23 17:37 | CP.PCM.CON ---
<David Weber - Last Filed: 09/23/17 18:30> History of Present Illness - History of Present Illness History of Present Illness: General Surgery Consult for Dr. El Reason for consult: Acute cholecystitis 76 M with past medical history that includes RA, PUD with GI bleed, Asthma, COPD , presents to [facility] with complaint of epigastric abdominal pain since Thursday. Thursday evening pain became worse so patient came to ED. Patient reports 3 episodes of vomiting on Thursday with NBNB emesis. Patient states he has never experienced pain like this before. He rates pain as moderate to severe. He describes pain as constant and sharp in epigastric region radiation to RUQ and back. Patient states that eating/drinking makes the pain worse. ABUS showed gallstones and trace fluid. HIDA was performed and found to be positive. Admits fever/chills, nausea/vomiting and constipation. Denies chest pain, SOB, palpitations, diarrhea, incontinence. PMH: RA, PUD with GI bleed, Asthma, COPD, Chronic opioid use Meds: As per EMR PSH: Denies FH: non-contributory Social: Former smoker, everyday drinker 6-7 drinks of liquor, denies illicit drug use Review of Systems - Review of Systems All systems: reviewed and no additional remarkable complaints except (as per HPI ) Past Patient History - Past Medical History & Family History Past Medical History?: Yes - Past Social History Smoking Status: Never Smoked Alcohol: Other (heavy ETHO 20 yrs ago.) Drugs: Denies - CARDIAC Hx Cardiac Disorders: No Hx Congestive Heart Failure: No Hx Hypercholesterolemia: No Hx Hypertension: No - PULMONARY Hx Respiratory Disorders: Yes Hx Asthma: Yes Hx Bronchitis: Yes Hx Chronic Obstructive Pulmonary Disease (COPD): Yes - NEUROLOGICAL Hx Neurological Disorder: No - HEENT Hx HEENT Problems: Yes Other/Comment: Allergic Rhinitis - RENAL Hx Chronic Kidney Disease: No - ENDOCRINE/METABOLIC Hx Endocrine Disorders: No Hx Hypothyroidism: No - HEMATOLOGICAL/ONCOLOGICAL Hx Blood Disorders: No Hx Human Immunodeficiency Virus (HIV): No - INTEGUMENTARY Hx Dermatological Problems: No - MUSCULOSKELETAL/RHEUMATOLOGICAL Hx Musculoskeletal Disorders: Yes Hx Arthritis: Yes Hx Back Pain: Yes Hx Rheumatoid Arthritis: Yes - GASTROINTESTINAL Hx Gastrointestinal Disorders: Yes Hx Colitis: Yes Hx Constipation: Yes Hx Gastroesophageal Reflux: Yes - GENITOURINARY/GYNECOLOGICAL Hx Genitourinary Disorders: No - PSYCHIATRIC Hx Psychophysiologic Disorder: Yes Hx Anxiety: Yes (No medication for anxiety prescribed by MD) - SURGICAL HISTORY Hx Surgeries: Yes Hx Joint Replacement: Yes (RT TOTAL HIP REPLACEMENT JUL 1994. LEFT TOTAL KNEE REPLACEMENT DECEMBER 1994) Hx Orthopedic Surgery: Yes (Right THR 1994, Left TKR 1994) Other/Comment: - HEMORROIDECTOMY X 2. - NASAL POLYPECTOMY. - EPIDURAL INJECTION X. 4. - RT AND LT TOES SURGERIES. - REVISION RIGHT THR 05/21/2015 - ANESTHESIA Hx Anesthesia: Yes Hx Anesthesia Reactions: No Hx Malignant Hyperthermia: No Meds Allergies/Adverse Reactions: Allergies Allergy/AdvReac Type Severity Reaction Status Date / Time No Known Allergies Allergy Verified 07/18/17 17:11 - Medications Medications: Current Medications Albuterol/Ipratropium (Duoneb 3 Mg/0.5 Mg (3 Ml) Ud) 3 ml INH RQ6 PRN PRN Reason: Shortness of Breath Last Admin: 09/23/17 07:47 Dose: 3 ml Budesonide (Pulmicort Respules) 0.5 mg INH RBID [facility] Last Admin: 09/23/17 07:47 Dose: 0.5 mg Hydrocortisone (Anusol-Hc) 1 applic MT Q12 PRN PRN Reason: Hemorrhoids Dextrose/Sodium Chloride (Dextrose 5%/0.45% Ns 1000 Ml) 1,000 mls @ 80 mls/hr IV .[id number] [facility] Stop: 09/24/17 13:17 Last Admin: 09/23/17 13:31 Dose: 80 mls/hr Piperacillin Sod/Tazobactam (Sod 3.375 gm/ Sodium Chloride) 100 mls @ 100 mls/ hr IVPB Q6 RJ PRN Reason: Protocol Morphine Sulfate (Morphine) 2 mg IVP Q4 PRN PRN Reason: Pain, severe (8-10) Last Admin: 09/23/17 17:17 Dose: 2 mg Ondansetron HCl (Zofran Inj) 4 mg IVP Q6 PRN PRN Reason: Nausea/Vomiting Last Admin: 09/21/17 19:54 Dose: 4 mg Pantoprazole Sodium (Protonix Inj) 40 mg IVP DAILY [facility] Last Admin: 09/23/17 09:27 Dose: 40 mg Polyethylene Glycol (Miralax) 17 gm PO QPM [facility] Last Admin: 09/23/17 17:06 Dose: Not Given Sucralfate (Carafate Tab) 1 gm PO ACHS [facility] Last Admin: 09/23/17 17:06 Dose: Not Given Physical Exam - Constitutional Appears: No Acute Distress - Head Exam Head Exam: ATRAUMATIC, NORMOCEPHALIC - Eye Exam Eye Exam: EOMI, Normal appearance Pupil Exam: PERRL - ENT Exam ENT Exam: Mucous Membranes Moist - Respiratory Exam Respiratory Exam: NORMAL BREATHING PATTERN - Cardiovascular Exam Cardiovascular Exam: REGULAR RHYTHM - GI/Abdominal Exam GI & Abdominal Exam: Distended, Guarding (voluntary), Soft, Tenderness. absent : Firm Additional comments: (+) camargo's sign - Extremities Exam Extremities exam: Positive for: normal capillary refill, pedal pulses present. Negative for: calf tenderness - Neurological Exam Neurological exam: Alert, CN II-XII Intact, Oriented x3 - Psychiatric Exam Psychiatric exam: Normal Affect, Normal Mood - Skin Skin Exam: Dry, Intact, Normal Color, Warm Results - Vital Signs Recent Vital Signs: Last Vital Signs Temp 98.8 F 09/23/17 16:51 Pulse 100 H 09/23/17 16:51 Resp 20 09/23/17 16:51 BP 108/72 09/23/17 16:51 Pulse Ox 92 L 09/23/17 16:51 - Labs Result Diagrams: 09/23/17 05:45 09/22/17 06:00 Labs: Laboratory Results - last 24 hr 09/23/17 05:45 WBC 16.9 H RBC 4.59 Hgb 14.7 Hct 42.9 MCV 93.4 MCH 32.1 H MCHC 34.4 RDW 14.9 H Plt Count 158 Assessment & Plan - Assessment and Plan (Free Text) Assessment: 76 M with cute cholecystitis, HIDA was positive Plan: -NPO -IV fluids -IV antibiotics -Analgesics/Anti-emetics PRN -Pre-op work up -Plan for OR tomorrow at 10 am for laparoscopic cholecystectomy -Discussed case and plan with Dr. El, he agrees David Weber PGY1 <Justin El - Last Filed: 09/24/17 10:24> History of Present Illness - History of Present Illness History of Present Illness: Patient was seen and examined at the bedside. Agree with resident's note above. Meds - Medications Medications: Current Medications Albuterol/Ipratropium (Duoneb 3 Mg/0.5 Mg (3 Ml) Ud) 3 ml INH RQ6 PRN PRN Reason: Shortness of Breath Last Admin: 09/23/17 07:47 Dose: 3 ml Budesonide (Pulmicort Respules) 0.5 mg INH RBID [facility] Last Admin: 09/24/17 08:11 Dose: 0.5 mg Hydrocortisone (Anusol-Hc) 1 applic MT Q12 PRN PRN Reason: Hemorrhoids Dextrose/Sodium Chloride (Dextrose 5%/0.45% Ns 1000 Ml) 1,000 mls @ 80 mls/hr IV .[id number] [facility] Stop: 09/24/17 13:17 Last Admin: 09/24/17 02:00 Dose: Not Given Piperacillin Sod/Tazobactam (Sod 3.375 gm/ Sodium Chloride) 100 mls @ 100 mls/ hr IVPB Q6 RJ PRN Reason: Protocol Last Admin: 09/24/17 03:02 Dose: 100 mls/hr Morphine Sulfate (Morphine) 2 mg IVP Q4 PRN PRN Reason: Pain, severe (8-10) Last Admin: 09/24/17 03:01 Dose: 2 mg Ondansetron HCl (Zofran Inj) 4 mg IVP Q6 PRN PRN Reason: Nausea/Vomiting Last Admin: 09/21/17 19:54 Dose: 4 mg Pantoprazole Sodium (Protonix Inj) 40 mg IVP DAILY [facility] Last Admin: 09/24/17 09:19 Dose: 40 mg Polyethylene Glycol (Miralax) 17 gm PO QPM [facility] Last Admin: 09/23/17 17:06 Dose: Not Given Sucralfate (Carafate Tab) 1 gm PO ACHS [facility] Last Admin: 09/24/17 08:06 Dose: Not Given Results - Vital Signs Recent Vital Signs: Last Vital Signs Temp 98.7 F 09/24/17 08:51 Pulse 75 09/24/17 08:51 Resp 20 09/24/17 08:51 BP 124/75 09/24/17 08:51 Pulse Ox 96 09/24/17 08:51 - Labs Result Diagrams: 09/24/17 06:30 09/24/17 06:30 Labs: Laboratory Results - last 24 hr 09/24/17 09/24/17 09/24/17 06:30 06:30 06:30 WBC 12.8 H RBC 4.59 Hgb 14.4 Hct 42.9 MCV 93.5 MCH 31.3 H MCHC 33.5 RDW 14.7 H Plt Count 147 PT 13.1 INR 1.2 APTT 29.1 Sodium 141 Potassium 3.7 Chloride 104 Carbon Dioxide 25 Anion Gap 16 BUN 18 Creatinine 1.3 Est GFR ( Amer) > 60 Est GFR (Non-Af Amer) 54 Random Glucose 124 H Calcium 8.5 Total Bilirubin 1.2 AST 30 ALT 42 Alkaline Phosphatase 80 Total Protein 7.0 Albumin 3.4 L Globulin 3.6 Albumin/Globulin Ratio 1.0 Blood Type Antibody Screen BBK History Checked 09/24/17 06:30 WBC RBC Hgb Hct MCV MCH MCHC RDW Plt Count PT INR APTT Sodium Potassium Chloride Carbon Dioxide Anion Gap BUN Creatinine Est GFR ( Amer) Est GFR (Non-Af Amer) Random Glucose Calcium Total Bilirubin AST ALT Alkaline Phosphatase Total Protein Albumin Globulin Albumin/Globulin Ratio Blood Type O POSITIVE Antibody Screen Negative BBK History Checked Patient has bt - Imaging and Cardiology US - abdomen Status: Image reviewed by me, Report reviewed by me
[2017-09-23] MEDS: Piperacillin/Tazobact 3.375 GM in Sodium Chloride 0.9% 100 ML IVPB SCH (21:44)
[2017-09-23] MEDS ORDERED: Piperacillin/Tazobact 3.375 GM in Sodium Chloride 0.9% 100 ML IVPB SCH (22:00)
[2017-09-24] MEDS: Dextrose 5%/0.45% NS 1,000 ML IV SCH (02:00)
[2017-09-24] MEDS: Piperacillin/Tazobact 3.375 GM in Sodium Chloride 0.9% 100 ML IVPB SCH ×4 (03:02→22:04)
[2017-09-24 07:02] LABS: HEMOGLOBIN 14.4 g/dL (12.0-18.0); MEAN CELL VOLUME 93.5 fl (80.0-94.0); MEAN CORPUSCULAR HEMOGLOBIN 31.3 pg (27.0-31.0); MEAN CORPUSCULAR HGB CONC 33.5 g/dL (33.0-37.0); RBC 4.59 Mil/uL (4.40-5.90); RED CELL DISTRIBUTION WIDTH 14.7 % (11.5-14.5); WHITE BLOOD COUNT 12.8 K/uL (4.8-10.8)
[2017-09-24 07:17] LABS: INR 1.2 (0.9-1.2); PARTIAL THROMBOPLASTIN TIME 29.1 Seconds (25.6-37.1); PROTHROMBIN TIME 13.1 Seconds (9.8-13.1)
[2017-09-24 07:32] LABS: ALBUMIN 3.4 g/dL (3.5-5.0); ALT/SGPT 42 U/L (21-72); AST/SGOT 30 U/L (17-59); BLOOD UREA NITROGEN 18 mg/dl (9-20); CALCIUM 8.5 mg/dL (8.4-10.2); GFR AFRICAN-AMERICAN > 60; GFR NON-AFRICAN AMERICAN 54
[2017-09-24] MEDS: Budesonide 0.5 mg/2 ml Inhal Susp UD INH SCH ×2 (08:11→19:15)
--- NOTE | 2017-09-24 09:42 | CP.PCM.PCO ---
Physician Communication Note - Physician Communication Note Physician Communication Note: Per Dr. Flores, patient is medically cleared for planned surgery
[2017-09-24] MEDS ORDERED: Albuterol 0.083% Inhal Sol (2.5 mg/3 mL) UD ONE (10:04)
[2017-09-24] MEDS ORDERED: Propofol 10 mg/ml Inj (20 ML) ONE (10:08)
[2017-09-24] MEDS ORDERED: Rocuronium 10 mg/ml (5 ml) ONE (10:09)
[2017-09-24] MEDS ORDERED: Succinylcholine 200 mg/10 ml Inj IV ONE (10:09)
[2017-09-24] MEDS ORDERED: Midazolam 2 MG/2 ML VIAL ONE (10:09)
[2017-09-24] MEDS ORDERED: Piperacillin/Tazobact 3.375 gm Inj IVPB ONE (10:30)
[2017-09-24] MEDS: Bupivacaine 0.5% Inj(30mL) ONE ×2 (10:56→12:34)
[2017-09-24] MEDS ORDERED: Lactated Ringer's 1,000 ML IV ONE ×2 (10:57→12:30)
[2017-09-24] MEDS ORDERED: Sodium Chloride 0.9% 1,000 ML IV ONE ×2 (10:58→11:42)
--- NOTE | 2017-09-24 11:23 | CP.PCM.PN ---
Subjective - Date & Time of Evaluation Date of Evaluation: 09/24/17 Time of Evaluation: 08:00 - Subjective Subjective: GI Fellow PGY4 Progress Note Patient seen and evaluated at bedside, pt doing well with no complaints of abdominal pain, nausea or vomiting. +BM, pt planned for cholecystectomy today. ROS: A 12pt ROS was negative except as above Objective - Vital Signs/Intake and Output Vital Signs (last 24 hours): Temp Pulse Resp BP Pulse Ox 98.7 F 75 20 124/75 96 09/24/17 08:51 09/24/17 08:51 09/24/17 08:51 09/24/17 08:51 09/24/17 08:51 Intake and Output: 09/24/17 09/24/17 06:59 18:59 Intake Total 700 Balance 700 - Medications Medications: Current Medications Albuterol/Ipratropium (Duoneb 3 Mg/0.5 Mg (3 Ml) Ud) 3 ml INH RQ6 PRN PRN Reason: Shortness of Breath Last Admin: 09/23/17 07:47 Dose: 3 ml Budesonide (Pulmicort Respules) 0.5 mg INH RBID [facility] Last Admin: 09/24/17 08:11 Dose: 0.5 mg Hydrocortisone (Anusol-Hc) 1 applic IN Q12 PRN PRN Reason: Hemorrhoids Dextrose/Sodium Chloride (Dextrose 5%/0.45% Ns 1000 Ml) 1,000 mls @ 80 mls/hr IV .[id number] [facility] Stop: 09/24/17 13:17 Last Admin: 09/24/17 02:00 Dose: Not Given Piperacillin Sod/Tazobactam (Sod 3.375 gm/ Sodium Chloride) 100 mls @ 100 mls/ hr IVPB Q6 RJ PRN Reason: Protocol Last Admin: 09/24/17 10:32 Dose: Not Given Morphine Sulfate (Morphine) 2 mg IVP Q4 PRN PRN Reason: Pain, severe (8-10) Last Admin: 09/24/17 03:01 Dose: 2 mg Ondansetron HCl (Zofran Inj) 4 mg IVP Q6 PRN PRN Reason: Nausea/Vomiting Last Admin: 09/21/17 19:54 Dose: 4 mg Pantoprazole Sodium (Protonix Inj) 40 mg IVP DAILY [facility] Last Admin: 09/24/17 09:19 Dose: 40 mg Polyethylene Glycol (Miralax) 17 gm PO QPM [facility] Last Admin: 09/23/17 17:06 Dose: Not Given Sucralfate (Carafate Tab) 1 gm PO ACHS [facility] Last Admin: 09/24/17 08:06 Dose: Not Given - Labs Labs: 09/24/17 06:30 09/24/17 06:30 PT 13.1 Seconds (9.8-13.1) 09/24/17 06:30 INR 1.2 (0.9-1.2) 09/24/17 06:30 APTT 29.1 Seconds (25.6-37.1) 09/24/17 06:30 - Constitutional Appears: Non-toxic, No Acute Distress - Head Exam Head Exam: ATRAUMATIC, NORMAL INSPECTION, NORMOCEPHALIC - Eye Exam Eye Exam: EOMI, Normal appearance, PERRL - ENT Exam ENT Exam: Mucous Membranes Moist - Neck Exam Neck Exam: Full ROM, Normal Inspection - Respiratory Exam Respiratory Exam: Clear to Ausculation Bilateral, NORMAL BREATHING PATTERN - Cardiovascular Exam Cardiovascular Exam: REGULAR RHYTHM, RRR - GI/Abdominal Exam GI & Abdominal Exam: Soft, Normal Bowel Sounds. absent: Distended, Guarding, Tenderness, Organomegaly - Rectal Exam Rectal Exam: Deferred - Extremities Exam Extremities Exam: Full ROM, Normal Inspection - Back Exam Back Exam: NORMAL INSPECTION - Neurological Exam Neurological Exam: Alert, Awake - Psychiatric Exam Psychiatric exam: Normal Affect, Normal Mood - Skin Skin Exam: Dry, Intact, Normal Color, Warm Assessment and Plan - Assessment and Plan (Free Text) Assessment: This is a 76yM presenting with complaints of abdominal pain. 1. Acute cholecystitis 2. Abdominal pain,Nausea and vomiting-resolved 3. Hx of PUD with GI bleed Plan: -Continue supportive care with pain control and anti-emetics -Abdominal pain from acute cholecystitis with positive HIDA scan -Avoid NSAIDs -PPI daily -NPO for cholecystectomy today -IVF hydration -Bowel regimen with miralax daily with pain medication -Endoscopic evaluation as an outpt -Will sign off, please call with any questions or concerns Discussed case with Dr. Durán and he agrees with the above mentioned plan of care.
--- NOTE | 2017-09-24 12:47 | PCM.SURG1 ---
Surgeon's Initial Post Op Note - Surgeon's Notes Surgeon: Sienna Irrigationist Designer: Darby, PGY2, Gus, PGY1. FRANCISCO Mckoy, PGY1. Pre-Operative Diagnosis: Acute Cholecystitis Operative Findings: gangrenous gallbladder Post-Operative Diagnosis: Acute gangrenous cholecystitis Operation Performed: Laparoscopic cholecystectomy Specimen/Specimens Removed: Gallbladder Estimated Blood Loss: EBL {In ML}: 40 Date of Surgery/Procedure: 09/24/17 Time of Surgery/Procedure: 10:00
[2017-09-24] MEDS ORDERED: Lactated Ringer's 1,000 ML IV SCH (13:00)
--- NOTE | 2017-09-24 13:25 | CP.PCM.PN ---
Subjective - Date & Time of Evaluation Date of Evaluation: 09/24/17 Time of Evaluation: 13:15 - Subjective Subjective: F/U S/P Lap-Cherie. Pt awake, mild post surgical pain, s/p Lap-Cherie today. Objective - Vital Signs/Intake and Output Vital Signs (last 24 hours): Temp Pulse Resp BP Pulse Ox 98.7 F 75 20 124/75 96 09/24/17 08:51 09/24/17 08:51 09/24/17 08:51 09/24/17 08:51 09/24/17 08:51 Intake and Output: 09/24/17 09/24/17 06:59 18:59 Intake Total 1000 Balance 1000 - Medications Medications: Current Medications Albuterol/Ipratropium (Duoneb 3 Mg/0.5 Mg (3 Ml) Ud) 3 ml INH RQ6 PRN PRN Reason: Shortness of Breath Last Admin: 09/23/17 07:47 Dose: 3 ml Budesonide (Pulmicort Respules) 0.5 mg INH RBID [facility] Last Admin: 09/24/17 08:11 Dose: 0.5 mg Hydrocortisone (Anusol-Hc) 1 applic [place] Q12 PRN PRN Reason: Hemorrhoids Piperacillin Sod/Tazobactam (Sod 3.375 gm/ Sodium Chloride) 100 mls @ 100 mls/ hr IVPB Q6 RJ PRN Reason: Protocol Last Admin: 09/24/17 10:32 Dose: Not Given Sodium Chloride (Sodium Chloride 0.9%) 1,000 mls @ 150 mls/hr IV .Q6H40M [facility] Stop: 09/25/17 12:48 Lactated Ringer's (Lactated Ringer's) 1,000 mls @ 100 mls/hr IV .Q10H [facility] Metoclopramide HCl (Reglan) 10 mg IVP ONCE PRN PRN Reason: Nausea/Vomiting Stop: 09/24/17 14:55 Morphine Sulfate (Morphine) 2 mg IVP Q4 PRN PRN Reason: Pain, severe (8-10) Last Admin: 09/24/17 03:01 Dose: 2 mg Morphine Sulfate (Morphine) 2 mg IVP Q10M PRN PRN Reason: Pain, moderate (4-7) Stop: 09/24/17 14:54 Last Admin: 09/24/17 13:05 Dose: 2 mg Ondansetron HCl (Zofran Inj) 4 mg IVP Q6 PRN PRN Reason: Nausea/Vomiting Last Admin: 09/21/17 19:54 Dose: 4 mg Pantoprazole Sodium (Protonix Inj) 40 mg IVP DAILY [facility] Last Admin: 09/24/17 09:19 Dose: 40 mg Polyethylene Glycol (Miralax) 17 gm PO QPM [facility] Last Admin: 09/23/17 17:06 Dose: Not Given Sucralfate (Carafate Tab) 1 gm PO ACHS [facility] Last Admin: 09/24/17 08:06 Dose: Not Given - Labs Labs: 09/24/17 06:30 09/24/17 06:30 PT 13.1 Seconds (9.8-13.1) 09/24/17 06:30 INR 1.2 (0.9-1.2) 09/24/17 06:30 APTT 29.1 Seconds (25.6-37.1) 09/24/17 06:30 - Constitutional Appears: No Acute Distress - Head Exam Head Exam: NORMAL INSPECTION - Eye Exam Eye Exam: PERRL - ENT Exam ENT Exam: Normal Exam - Neck Exam Neck Exam: Normal Inspection - Respiratory Exam Respiratory Exam: NORMAL BREATHING PATTERN - Cardiovascular Exam Cardiovascular Exam: REGULAR RHYTHM - GI/Abdominal Exam GI & Abdominal Exam: Distended (mild), Hypoactive Bowel Sounds. absent: Tenderness Additional comments: Dressing to R abdomen, connected to ALEX drain. - Extremities Exam Extremities Exam: Tenderness (R-L knee) - Back Exam Back Exam: NORMAL INSPECTION - Neurological Exam Neurological Exam: Alert, CN II-XII Intact, Oriented x3 - Psychiatric Exam Psychiatric exam: Normal Mood - Skin Skin Exam: Warm Assessment and Plan (1) S/P laparoscopic cholecystectomy Status: Acute (2) Cholelithiasis Status: Acute (3) Abdominal pain Status: Acute (4) Nausea & vomiting Status: Acute (5) History of peptic ulcer disease Status: Chronic (6) Lumbago Status: Chronic (7) RA (rheumatoid arthritis) Status: Chronic (8) History of COPD Status: Chronic - Assessment and Plan (Free Text) Plan: Continue current Tx.
--- NOTE | 2017-09-24 14:29 | OP ---
PROCEDURE DATE: 09/24/17 PREOPERATIVE DIAGNOSIS: Acute cholecystitis. POSTOPERATIVE DIAGNOSIS: Acute gangrenous cholecystitis. PROCEDURE: Laparoscopic cholecystectomy. SURGEON: Justin El MD SPECIAL EVENTS COORDINATOR: Darby Rocha. SECOND SPECIAL EVENTS COORDINATOR: David Weber. ANESTHESIOLOGIST: Levi Melendez MD TYPE OF ANESTHESIA: General with endotracheal intubation. IV FLUID INTAKE: Crystalloids. ESTIMATED BLOOD LOSS: 50 mL. INTRAOPERATIVE FINDINGS: Gangrenous cholecystitis. SPECIMENS: Gallbladder with stones. BRIEF HISTORY: Mr. May is a very pleasant 76-year-old gentleman who presented to the hospital with epigastric abdominal pain for several days and actually underwent ultrasound as well as abdominal CAT scan showing just stones, but had mild amount of pericholecystic fluid; however, the patient had increased white count and underwent HIDA scan showing obstruction of the cystic duct. All the risks and benefits of the procedure were explained to the patient and with the patient having a full understanding of all the risks and benefits involved, informed consent was obtained and the patient was taken to the operating room for above-stated procedure. DESCRIPTION OF PROCEDURE: The patient was brought into the operating room and placed supine on the operating room table. Bilateral Flowtron boots were applied to the patient's lower extremities. After successful induction of anesthesia and successful endotracheal intubation by the anesthesia team, the patient's abdomen was shaved and prepped with ChloraPrep stick and draped in the standard surgical fashion. Prior to the beginning of the procedure, a time-out was called in the room and everyone in the room were in agreement. Using Veress needle, the patient's abdomen was entered at the umbilicus and pneumoperitoneum was achieved with good opening pressures. Once this was accomplished using an 11-blade scalpel knife, approximately 1 cm incision was made in the umbilicus in the longitudinal fashion, and subsequent to that, 11-mm trocar was introduced into the patient's abdomen. At this point in time, 5-mm 0-degree scope was introduced into the patient's abdomen and the abdomen was inspected. Then attention was turned to the subxiphoid area. Using 11-blade scalpel knife, 5-mm incision was made in a transverse fashion and subsequent to that, another 5-mm trocar was introduced into the patient's abdomen. At this point in time, attention was turned to the right side of the patient's abdomen, using a 11 blade scalpel knife, two 5-mm incisions were made in the right side of the patient's abdomen in a transverse fashion. Subsequent to that, two 5-mm trocars were introduced into the patient's abdomen. At this point in time, omentum was teased off the gallbladder and the gallbladder appeared to be necrotic. At this point in time, the gallbladder was grasped to the fundus and infundibulum, and using [place] dissector as well as suction irrigation device, cystic duct and cystic artery were dissected out and critical view of safety was achieved. At this point in time, cystic duct was clipped with 2 clips proximal and 1 distal, and transected with laparoscopic scissors. Same thing was done for the cystic artery; it was clipped with 2 clips proximal and 1 distal, and transected with laparoscopic scissors. Upon further dissection, posterior branch of the cystic artery was encountered. It was dissected out with [place] dissector and clipped with 2 clips proximal, 1 distal and transected with laparoscopic scissors. At this point in time, gallbladder was dissected off the gallbladder fossa using spatula electrocautery. Once the gallbladder was completely freed up from the gallbladder fossa, EndoCatch bag was introduced into the patient's abdomen. Gallbladder was placed inside of the bag and the bag was closed. At this point in time, the gallbladder fossa was irrigated and fluid was suctioned out and hemostasis was achieved with spatula electrocautery. Once this was accomplished, I made a decision to use #19 Manfred. Manfred drain was brought out for the most lateral right-sided trocar site and tip of the drain was placed in the gallbladder fossa and the drain was secured with stay 2-0 silk suture to the skin. At this point in time, an 11-mm trocar together with Endocatch bag and gallbladder were removed from the patient's abdomen and passed off to the [facility] as a specimen. Fascial layer at the umbilical port site was closed with one interrupted 0-Vicryl suture and UR-5 needle. Subsequent to that the patient's abdomen was fully desufflated; the rest of the trocars were removed from the patient's abdomen and the skin was closed with 4-0 Monocryl suture in a running subcuticular fashion. At the end of the procedure, incision sites were infiltrated with Marcaine anesthetic. The patient's abdomen was washed and dried and a Dermabond was applied to the site of the incisions. The patient was successfully extubated by the anesthesia team, transferred with a stretcher and taken to the recovery room in a stable condition. At the end of the procedure, all instrument counts, needles, and sponges were correct. Justin El MD MTDD
[2017-09-24] MEDS: Sodium Chloride 0.9% 1,000 ML IV SCH ×2 (16:48→19:45)
[2017-09-24] MEDS: POLYETHYLENE GLYCOL 3350 17 GM/Dose PACKET PO SCH (19:04)
[2017-09-25] MEDS: Sodium Chloride 0.9% 1,000 ML IV SCH ×2 (03:15→08:59)
[2017-09-25] MEDS: Piperacillin/Tazobact 3.375 GM in Sodium Chloride 0.9% 100 ML IVPB SCH ×4 (03:16→21:41)
--- NOTE | 2017-09-25 08:11 | CP.PCM.PN ---
<Patrick Mckoy - Last Filed: 09/25/17 08:08> Subjective - Date & Time of Evaluation Date of Evaluation: 09/25/17 Time of Evaluation: 07:30 - Subjective Subjective: General Surgery Progress Note- Dr. El 76 y.o male seen POD#1 laparoscopic cholecystectomy secondary to acute cholecystitis. Patient is seen resting comfortably in bed, in NAD, and AA0x3. Denies acute overnight events. Patient reports pain is less today. Reports able to tolerate liquid diet without issues. Denies nausea or vomiting. Denies chills , fever, shortness of breath or chest pain. Objective - Vital Signs/Intake and Output Vital Signs (last 24 hours): Temp Pulse Resp BP Pulse Ox 98.7 F 76 18 120/74 97 09/25/17 05:00 09/25/17 05:00 09/25/17 05:00 09/25/17 05:00 09/25/17 05:00 Intake and Output: 09/25/17 09/25/17 06:59 18:59 Intake Total 2550 Output Total 1120 Balance 1430 - Medications Medications: Current Medications Albuterol/Ipratropium (Duoneb 3 Mg/0.5 Mg (3 Ml) Ud) 3 ml INH RQ6 PRN PRN Reason: Shortness of Breath Last Admin: 09/23/17 07:47 Dose: 3 ml Budesonide (Pulmicort Respules) 0.5 mg INH RBID [facility]J Last Admin: 09/24/17 19:15 Dose: 0.5 mg Hydrocortisone (Anusol-Hc) 1 applic [place] Q12 PRN PRN Reason: Hemorrhoids Piperacillin Sod/Tazobactam (Sod 3.375 gm/ Sodium Chloride) 100 mls @ 100 mls/ hr IVPB Q6 RJ PRN Reason: Protocol Last Admin: 09/25/17 03:16 Dose: 100 mls/hr Sodium Chloride (Sodium Chloride 0.9%) 1,000 mls @ 150 mls/hr IV .Q6H40M RJ Stop: 09/25/17 12:48 Last Admin: 09/25/17 03:15 Dose: 150 mls/hr Lactated Ringer's (Lactated Ringer's) 1,000 mls @ 100 mls/hr IV .Q10H [facility]J Last Admin: 09/24/17 23:00 Dose: Not Given Morphine Sulfate (Morphine) 2 mg IVP Q4 PRN PRN Reason: Pain, severe (8-10) Last Admin: 09/25/17 03:11 Dose: 2 mg Ondansetron HCl (Zofran Inj) 4 mg IVP Q6 PRN PRN Reason: Nausea/Vomiting Last Admin: 09/21/17 19:54 Dose: 4 mg Pantoprazole Sodium (Protonix Inj) 40 mg IVP DAILY [facility] Last Admin: 09/24/17 09:19 Dose: 40 mg Polyethylene Glycol (Miralax) 17 gm PO QPM [facility] Last Admin: 09/24/17 19:04 Dose: 17 gm Sucralfate (Carafate Tab) 1 gm PO ACHS [facility] Last Admin: 09/25/17 07:51 Dose: 1 gm - Labs Labs: 09/24/17 06:30 09/24/17 06:30 PT 13.1 Seconds (9.8-13.1) 09/24/17 06:30 INR 1.2 (0.9-1.2) 09/24/17 06:30 APTT 29.1 Seconds (25.6-37.1) 09/24/17 06:30 - Constitutional Appears: Well, Non-toxic, No Acute Distress - Head Exam Head Exam: NORMOCEPHALIC - Eye Exam Eye Exam: Normal appearance - ENT Exam ENT Exam: Mucous Membranes Moist - Respiratory Exam Respiratory Exam: NORMAL BREATHING PATTERN - Cardiovascular Exam Cardiovascular Exam: +S1, +S2 - GI/Abdominal Exam GI & Abdominal Exam: Soft. absent: Distended, Firm, Guarding Additional comments: dressing clean dry and intact pain with palpation surrounding surgical site - Extremities Exam Extremities Exam: absent: Calf Tenderness - Neurological Exam Neurological Exam: Alert, Awake, Oriented x3 - Psychiatric Exam Psychiatric exam: Normal Affect, Normal Mood Assessment and Plan - Assessment and Plan (Free Text) Assessment: 76 y.o male seen POD#1 laparoscopic cholecystectomy secondary to acute cholecystitis. <Justin El - Last Filed: 09/25/17 10:46> Subjective - Date & Time of Evaluation Time of Evaluation: 10:10 - Subjective Subjective: Patient was seen and examined at the bedside. Agree with resident's note above. Tolerating clear liquid diet. Objective - Vital Signs/Intake and Output Vital Signs (last 24 hours): Temp Pulse Resp BP Pulse Ox 99.1 F 81 20 137/76 95 09/25/17 09:00 09/25/17 09:00 09/25/17 09:00 09/25/17 09:00 09/25/17 09:00 Intake and Output: 09/25/17 09/25/17 06:59 18:59 Intake Total 2550 Output Total 1120 Balance 1430 - Medications Medications: Current Medications Albuterol/Ipratropium (Duoneb 3 Mg/0.5 Mg (3 Ml) Ud) 3 ml INH RQ6 PRN PRN Reason: Shortness of Breath Last Admin: 09/23/17 07:47 Dose: 3 ml Budesonide (Pulmicort Respules) 0.5 mg INH RBID [facility] Last Admin: 09/25/17 08:13 Dose: 0.5 mg Enoxaparin Sodium (Lovenox) 40 mg SC DAILY RJ PRN Reason: Protocol Hydrocortisone (Anusol-Hc) 1 applic [place] Q12 PRN PRN Reason: Hemorrhoids Piperacillin Sod/Tazobactam (Sod 3.375 gm/ Sodium Chloride) 100 mls @ 100 mls/ hr IVPB Q6 RJ PRN Reason: Protocol Last Admin: 09/25/17 09:20 Dose: 100 mls/hr Sodium Chloride (Sodium Chloride 0.9%) 1,000 mls @ 150 mls/hr IV .Q6H40M [facility] Stop: 09/25/17 12:48 Last Admin: 09/25/17 08:59 Dose: Not Given Lactated Ringer's (Lactated Ringer's) 1,000 mls @ 100 mls/hr IV .Q10H [facility] Last Admin: 09/24/17 23:00 Dose: Not Given Morphine Sulfate (Morphine) 2 mg IVP Q4 PRN PRN Reason: Pain, severe (8-10) Last Admin: 09/25/17 08:11 Dose: 2 mg Ondansetron HCl (Zofran Inj) 4 mg IVP Q6 PRN PRN Reason: Nausea/Vomiting Last Admin: 09/21/17 19:54 Dose: 4 mg Pantoprazole Sodium (Protonix Inj) 40 mg IVP DAILY [facility] Last Admin: 09/25/17 08:15 Dose: 40 mg Polyethylene Glycol (Miralax) 17 gm PO QPM [facility] Last Admin: 09/24/17 19:04 Dose: 17 gm Sucralfate (Carafate Tab) 1 gm PO ACHS [facility] Last Admin: 09/25/17 07:51 Dose: 1 gm - Labs Labs: 09/24/17 06:30 09/24/17 06:30 PT 13.1 Seconds (9.8-13.1) 09/24/17 06:30 INR 1.2 (0.9-1.2) 09/24/17 06:30 APTT 29.1 Seconds (25.6-37.1) 09/24/17 06:30 - GI/Abdominal Exam Additional comments: soft, mild tom-incisional tenderness, ND, BS+, no rebound, no guarding, incisions clean, no erythema, no drainage, Manfred drain in place with minimal serosangenous fluid Assessment and Plan - Assessment and Plan (Free Text) Plan: - Start regular diet - Pain control - Continue antibiotics - Insentive spirometry - Repeat labs in am - Out of bed and ambulate - Will follow
[2017-09-25] MEDS: Budesonide 0.5 mg/2 ml Inhal Susp UD INH SCH (08:13)
[2017-09-25] MEDS: Enoxaparin 40 mg Syringe SC SCH (11:24)
--- NOTE | 2017-09-25 13:55 | CP.PCM.PN ---
Subjective - Date & Time of Evaluation Date of Evaluation: 09/25/17 Time of Evaluation: 11:30 - Subjective Subjective: S/P Lap Cherie. Pt doing well, no c/o of abdominal pain. Objective - Vital Signs/Intake and Output Vital Signs (last 24 hours): Temp Pulse Resp BP Pulse Ox 99.1 F 81 20 137/76 95 09/25/17 09:00 09/25/17 09:00 09/25/17 09:00 09/25/17 09:00 09/25/17 09:00 Intake and Output: 09/25/17 09/25/17 06:59 18:59 Intake Total 2550 Output Total 1120 Balance 1430 - Medications Medications: Current Medications Albuterol/Ipratropium (Duoneb 3 Mg/0.5 Mg (3 Ml) Ud) 3 ml INH RQ6 PRN PRN Reason: Shortness of Breath Last Admin: 09/23/17 07:47 Dose: 3 ml Budesonide (Pulmicort Respules) 0.5 mg INH RBID [facility] Last Admin: 09/25/17 08:13 Dose: 0.5 mg Enoxaparin Sodium (Lovenox) 40 mg SC DAILY [facility] PRN Reason: Protocol Last Admin: 09/25/17 11:24 Dose: 40 mg Hydrocortisone (Anusol-Hc) 1 applic [place] Q12 PRN PRN Reason: Hemorrhoids Piperacillin Sod/Tazobactam (Sod 3.375 gm/ Sodium Chloride) 100 mls @ 100 mls/ hr IVPB Q6 RJ PRN Reason: Protocol Last Admin: 09/25/17 09:20 Dose: 100 mls/hr Lactated Ringer's (Lactated Ringer's) 1,000 mls @ 100 mls/hr IV .Q10H [facility] Last Admin: 09/24/17 23:00 Dose: Not Given Morphine Sulfate (Morphine) 2 mg IVP Q4 PRN PRN Reason: Pain, severe (8-10) Last Admin: 09/25/17 08:11 Dose: 2 mg Ondansetron HCl (Zofran Inj) 4 mg IVP Q6 PRN PRN Reason: Nausea/Vomiting Last Admin: 09/21/17 19:54 Dose: 4 mg Pantoprazole Sodium (Protonix Inj) 40 mg IVP DAILY [facility] Last Admin: 09/25/17 08:15 Dose: 40 mg Polyethylene Glycol (Miralax) 17 gm PO QPM [facility] Last Admin: 09/24/17 19:04 Dose: 17 gm Sucralfate (Carafate Tab) 1 gm PO ACHS [facility] Last Admin: 09/25/17 11:24 Dose: 1 gm - Labs Labs: 09/24/17 06:30 09/24/17 06:30 PT 13.1 Seconds (9.8-13.1) 09/24/17 06:30 INR 1.2 (0.9-1.2) 09/24/17 06:30 APTT 29.1 Seconds (25.6-37.1) 09/24/17 06:30 - Constitutional Appears: No Acute Distress - Head Exam Head Exam: NORMAL INSPECTION - Eye Exam Eye Exam: PERRL - ENT Exam ENT Exam: Normal Exam - Neck Exam Neck Exam: Normal Inspection - Respiratory Exam Respiratory Exam: Decreased Breath Sounds (at bases), Rhonchi (scattered) - Cardiovascular Exam Cardiovascular Exam: REGULAR RHYTHM - GI/Abdominal Exam GI & Abdominal Exam: Soft, Tenderness (minimal post surgical), Normal Bowel Sounds. absent: Distended Additional comments: Dressing to surgical site, drainage in place. - Extremities Exam Extremities Exam: Tenderness (R-L knee) - Back Exam Back Exam: NORMAL INSPECTION - Neurological Exam Neurological Exam: Alert, CN II-XII Intact, Oriented x3 - Psychiatric Exam Psychiatric exam: Normal Mood - Skin Skin Exam: Warm Assessment and Plan (1) S/P laparoscopic cholecystectomy Status: Acute (2) Cholelithiasis Status: Acute (3) Abdominal pain Status: Acute (4) Nausea & vomiting Status: Acute (5) History of peptic ulcer disease Status: Chronic (6) Lumbago Status: Chronic (7) RA (rheumatoid arthritis) Status: Chronic (8) History of COPD Status: Chronic - Assessment and Plan (Free Text) Plan: Continue IV abx, Surgical f/u.
[2017-09-25] MEDS: POLYETHYLENE GLYCOL 3350 17 GM/Dose PACKET PO SCH (19:42)
[2017-09-25 23:34] VITALS: RESP 20
[2017-09-26] MEDS: Piperacillin/Tazobact 3.375 GM in Sodium Chloride 0.9% 100 ML IVPB SCH ×3 (04:38→16:39)
[2017-09-26 07:14] LABS: BASO % 0.5 % (0.0-2.0); EOS # 0.5 K/uL (0.0-0.7); EOS % 5.9 % (0.0-4.0); HEMOGLOBIN 13.1 g/dL (12.0-18.0); LYMPH # 2.3 K/uL (1.0-4.3); MEAN CELL VOLUME 94.1 fl (80.0-94.0); MEAN CORPUSCULAR HEMOGLOBIN 32.2 pg (27.0-31.0); MEAN CORPUSCULAR HGB CONC 34.2 g/dL (33.0-37.0); MONO % 11.7 % (0.0-10.0); NEUT # 4.9 K/uL (1.8-7.0); NEUT % 55.9 % (50.0-75.0); RBC 4.07 Mil/uL (4.40-5.90); RED CELL DISTRIBUTION WIDTH 14.6 % (11.5-14.5); WHITE BLOOD COUNT 8.8 K/uL (4.8-10.8)
[2017-09-26] MEDS: Budesonide 0.5 mg/2 ml Inhal Susp UD INH SCH (07:23)
[2017-09-26 07:36] LABS: ALBUMIN 3.1 g/dL (3.5-5.0); ALT/SGPT 70 U/L (21-72); AST/SGOT 44 U/L (17-59); BLOOD UREA NITROGEN 12 mg/dl (9-20); CALCIUM 7.6 mg/dL (8.4-10.2); GFR AFRICAN-AMERICAN > 60; GFR NON-AFRICAN AMERICAN 59
[2017-09-26 08:20] VITALS: TEMP 98.1
[2017-09-26] MEDS: Enoxaparin 40 mg Syringe SC SCH (08:53)
--- NOTE | 2017-09-26 09:31 | CP.PCM.PN ---
<KevanLeslie - Last Filed: 09/26/17 09:29> Subjective - Date & Time of Evaluation Date of Evaluation: 09/26/17 Time of Evaluation: 09:29 - Subjective Subjective: Surgery Patient seen and examined. No acute events. Tolerating regular diet. + BM. + ambulating. + void. Pain controlled. Minimal output from drain. Objective - Vital Signs/Intake and Output Vital Signs (last 24 hours): Temp Pulse Resp BP Pulse Ox 98.1 F 85 20 137/77 96 09/26/17 08:20 09/26/17 08:20 09/26/17 08:20 09/26/17 08:20 09/26/17 08:20 Intake and Output: 09/26/17 09/26/17 06:59 18:59 Output Total 15 Balance -15 - Medications Medications: Current Medications Albuterol/Ipratropium (Duoneb 3 Mg/0.5 Mg (3 Ml) Ud) 3 ml INH RQ6 PRN PRN Reason: Shortness of Breath Last Admin: 09/23/17 07:47 Dose: 3 ml Budesonide (Pulmicort Respules) 0.5 mg INH RBID [facility] Last Admin: 09/26/17 07:23 Dose: 0.5 mg Enoxaparin Sodium (Lovenox) 40 mg SC DAILY [facility] PRN Reason: Protocol Last Admin: 09/26/17 08:53 Dose: 40 mg Hydrocortisone (Anusol-Hc) 1 applic [place] Q12 PRN PRN Reason: Hemorrhoids Piperacillin Sod/Tazobactam (Sod 3.375 gm/ Sodium Chloride) 100 mls @ 100 mls/ hr IVPB Q6 RJ PRN Reason: Protocol Last Admin: 09/26/17 08:59 Dose: 100 mls/hr Lactated Ringer's (Lactated Ringer's) 1,000 mls @ 100 mls/hr IV .Q10H [facility] Last Admin: 09/24/17 23:00 Dose: Not Given Morphine Sulfate (Morphine) 2 mg IVP Q4 PRN PRN Reason: Pain, severe (8-10) Last Admin: 09/25/17 15:33 Dose: 2 mg Ondansetron HCl (Zofran Inj) 4 mg IVP Q6 PRN PRN Reason: Nausea/Vomiting Last Admin: 09/21/17 19:54 Dose: 4 mg Pantoprazole Sodium (Protonix Inj) 40 mg IVP DAILY [facility] Last Admin: 09/26/17 08:54 Dose: 40 mg Polyethylene Glycol (Miralax) 17 gm PO QPM [facility] Last Admin: 09/25/17 19:42 Dose: 17 gm Sucralfate (Carafate Tab) 1 gm PO ACHS [facility] Last Admin: 09/26/17 07:14 Dose: 1 gm - Labs Labs: 09/26/17 05:25 09/26/17 05:25 PT 13.1 Seconds (9.8-13.1) 09/24/17 06:30 INR 1.2 (0.9-1.2) 09/24/17 06:30 APTT 29.1 Seconds (25.6-37.1) 09/24/17 06:30 - Constitutional Appears: No Acute Distress - Head Exam Head Exam: ATRAUMATIC, NORMAL INSPECTION, NORMOCEPHALIC - Eye Exam Eye Exam: EOMI, Normal appearance, PERRL Pupil Exam: NORMAL ACCOMODATION, PERRL - ENT Exam ENT Exam: Mucous Membranes Moist, Normal Exam - Neck Exam Neck Exam: Full ROM, Normal Inspection. absent: Lymphadenopathy - Respiratory Exam Respiratory Exam: Clear to Ausculation Bilateral, NORMAL BREATHING PATTERN - Cardiovascular Exam Cardiovascular Exam: REGULAR RHYTHM, +S1, +S2. absent: Murmur - GI/Abdominal Exam GI & Abdominal Exam: Soft, Normal Bowel Sounds. absent: Distended, Firm, Guarding, Rigid, Tenderness Additional comments: Incision c/d/i. Drain ss 15cc /overnight - Rectal Exam Rectal Exam: NORMAL INSPECTION - Extremities Exam Extremities Exam: Full ROM, Normal Capillary Refill, Normal Inspection. absent : Joint Swelling, Pedal Edema - Back Exam Back Exam: NORMAL INSPECTION - Neurological Exam Neurological Exam: Alert, Awake, CN II-XII Intact, Normal Gait, Oriented x3 - Psychiatric Exam Psychiatric exam: Normal Affect, Normal Mood - Skin Skin Exam: Dry, Intact, Normal Color, Warm Assessment and Plan - Assessment and Plan (Free Text) Assessment: POD 3 s/p lap linda - regular diet - Pain control - Continue antibiotics - Insentive spirometry - Out of bed and ambulate - Will follow Will CHILANGO El <Justin El - Last Filed: 09/26/17 15:45> Subjective - Date & Time of Evaluation Time of Evaluation: 14:50 - Subjective Subjective: Patient was seen and examined at the bedside. Agree with resident's note above. Objective - Vital Signs/Intake and Output Vital Signs (last 24 hours): Temp Pulse Resp BP Pulse Ox 98.1 F 85 20 137/77 96 09/26/17 08:20 09/26/17 08:20 09/26/17 08:20 09/26/17 08:20 09/26/17 08:20 Intake and Output: 09/26/17 09/26/17 06:59 18:59 Output Total 15 Balance -15 - Medications Medications: Current Medications Albuterol/Ipratropium (Duoneb 3 Mg/0.5 Mg (3 Ml) Ud) 3 ml INH RQ6 PRN PRN Reason: Shortness of Breath Last Admin: 09/23/17 07:47 Dose: 3 ml Budesonide (Pulmicort Respules) 0.5 mg INH RBID [facility] Last Admin: 09/26/17 07:23 Dose: 0.5 mg Enoxaparin Sodium (Lovenox) 40 mg SC DAILY RJ PRN Reason: Protocol Last Admin: 09/26/17 08:53 Dose: 40 mg Hydrocortisone (Anusol-Hc) 1 applic [place] Q12 PRN PRN Reason: Hemorrhoids Piperacillin Sod/Tazobactam (Sod 3.375 gm/ Sodium Chloride) 100 mls @ 100 mls/ hr IVPB Q6 RJ PRN Reason: Protocol Last Admin: 09/26/17 08:59 Dose: 100 mls/hr Lactated Ringer's (Lactated Ringer's) 1,000 mls @ 100 mls/hr IV .Q10H [facility] Last Admin: 09/24/17 23:00 Dose: Not Given Morphine Sulfate (Morphine) 2 mg IVP Q4 PRN PRN Reason: Pain, severe (8-10) Last Admin: 09/25/17 15:33 Dose: 2 mg Ondansetron HCl (Zofran Inj) 4 mg IVP Q6 PRN PRN Reason: Nausea/Vomiting Last Admin: 09/21/17 19:54 Dose: 4 mg Pantoprazole Sodium (Protonix Inj) 40 mg IVP DAILY [facility] Last Admin: 09/26/17 08:54 Dose: 40 mg Polyethylene Glycol (Miralax) 17 gm PO QPM [facility] Last Admin: 09/25/17 19:42 Dose: 17 gm Sucralfate (Carafate Tab) 1 gm PO ACHS [facility] Last Admin: 09/26/17 12:30 Dose: 1 gm - Labs Labs: 09/26/17 05:25 09/26/17 05:25 PT 13.1 Seconds (9.8-13.1) 09/24/17 06:30 INR 1.2 (0.9-1.2) 09/24/17 06:30 APTT 29.1 Seconds (25.6-37.1) 09/24/17 06:30 Assessment and Plan - Assessment and Plan (Free Text) Plan: - Removed Manfred drain - Continue diet - Patient is clear for discharge home from general surgery stand point - Augmentin for 1 week on discharge - Patient will follow up with me in the office in 10 days to 2 weeks for post- op visit
[2017-09-26 15:54] VITALS: BP 151/79; PULSE 73; O2SAT 97
[2017-09-26] MEDS: POLYETHYLENE GLYCOL 3350 17 GM/Dose PACKET PO SCH (17:37)
--- NOTE | 2017-09-26 19:03 | CP.PCM.DIS ---
Provider - Provider Date of Admission: 09/23/17 11:53 Attending physician: Alli Flores MD Diagnosis - Discharge Diagnosis (1) S/P laparoscopic cholecystectomy Status: Acute (2) Cholelithiasis Status: Acute (3) Abdominal pain Status: Acute Priority: High (4) Nausea & vomiting Status: Acute Priority: High (5) History of peptic ulcer disease Status: Chronic (6) Lumbago Status: Chronic Priority: High (7) RA (rheumatoid arthritis) Status: Chronic Priority: High (8) History of COPD Status: Chronic Priority: Medium Hospital Course - Lab Results Lab Results: Most Recent Lab Values WBC 8.8 K/uL (4.8-10.8) 09/26/17 05:25 RBC 4.07 Mil/uL (4.40-5.90) L 09/26/17 05:25 Hgb 13.1 g/dL (12.0-18.0) 09/26/17 05:25 Hct 38.3 % (35.0-51.0) 09/26/17 05:25 MCV 94.1 fl (80.0-94.0) H 09/26/17 05:25 MCH 32.2 pg (27.0-31.0) H 09/26/17 05:25 MCHC 34.2 g/dL (33.0-37.0) 09/26/17 05:25 RDW 14.6 % (11.5-14.5) H 09/26/17 05:25 Plt Count 158 K/uL (130-400) 09/26/17 05:25 MPV 8.0 fl (7.2-11.7) 09/26/17 05:25 Neut % (Auto) 55.9 % (50.0-75.0) 09/26/17 05:25 Lymph % (Auto) 26.0 % (20.0-40.0) 09/26/17 05:25 Gove % (Auto) 11.7 % (0.0-10.0) H 09/26/17 05:25 Eos % (Auto) 5.9 % (0.0-4.0) H 09/26/17 05:25 Baso % (Auto) 0.5 % (0.0-2.0) 09/26/17 05:25 Neut # (Auto) 4.9 K/uL (1.8-7.0) 09/26/17 05:25 Lymph # (Auto) 2.3 K/uL (1.0-4.3) 09/26/17 05:25 Gove # (Auto) 1.0 K/uL (0.0-0.8) H 09/26/17 05:25 Eos # (Auto) 0.5 K/uL (0.0-0.7) 09/26/17 05:25 Baso # (Auto) 0.0 K/uL (0.0-0.2) 09/26/17 05:25 Neutrophils % (Manual) 83 % (42-75) H 09/22/17 06:00 Band Neutrophils % 2 % (0-2) 09/22/17 06:00 Lymphocytes % (Manual) 5 % (20-50) L 09/22/17 06:00 Reactive Lymphs % 3 % (0-0) H 09/22/17 06:00 Monocytes % (Manual) 7 % (0-10) 09/22/17 06:00 Platelet Estimate Normal (NORMAL) 09/22/17 06:00 Anisocytosis (manual) Slight 09/22/17 06:00 PT 13.1 Seconds (9.8-13.1) 09/24/17 06:30 INR 1.2 (0.9-1.2) 09/24/17 06:30 APTT 29.1 Seconds (25.6-37.1) 09/24/17 06:30 Sodium 142 mmol/l (132-148) 09/26/17 05:25 Potassium 3.5 MMOL/L (3.6-5.0) L 09/26/17 05:25 Chloride 106 mmol/L (98-107) 09/26/17 05:25 Carbon Dioxide 23 mmol/L (22-30) 09/26/17 05:25 Anion Gap 17 (10-20) 09/26/17 05:25 BUN 12 mg/dl (9-20) 09/26/17 05:25 Creatinine 1.2 mg/dl (0.8-1.5) 09/26/17 05:25 Est GFR ( Amer) > 60 09/26/17 05:25 Est GFR (Non-Af Amer) 59 09/26/17 05:25 Random Glucose 95 mg/dL (75-110) 09/26/17 05:25 Calcium 7.6 mg/dL (8.4-10.2) L 09/26/17 05:25 Total Bilirubin 0.9 mg/dl (0.2-1.3) 09/26/17 05:25 AST 44 U/L (17-59) 09/26/17 05:25 ALT 70 U/L (21-72) 09/26/17 05:25 Alkaline Phosphatase 77 U/L (38-126) 09/26/17 05:25 Troponin I < 0.0120 ng/mL (0.00-0.120) 09/21/17 15:12 Total Protein 6.3 G/DL (6.3-8.2) 09/26/17 05:25 Albumin 3.1 g/dL (3.5-5.0) L 09/26/17 05:25 Globulin 3.2 gm/dL (2.2-3.9) 09/26/17 05:25 Albumin/Globulin Ratio 1.0 (1.0-2.1) 09/26/17 05:25 Triglycerides 60 mg/DL (0-149) 09/22/17 06:00 Cholesterol 173 mg/dL (0-199) 09/22/17 06:00 LDL Cholesterol Direct 98 mg/dL (0-129) 09/22/17 06:00 HDL Cholesterol 45 MG/DL (30-70) 09/22/17 06:00 Lipase 78 U/L (23-300) 09/21/17 11:00 Thyroxine (T4) 7.24 ug/dl (5.5-11.0) 09/22/17 06:00 TSH 3rd Generation 0.64 mIU/ML (0.46-4.68) 09/22/17 06:00 Urine Color Straw (YELLOW) 09/21/17 16:40 Urine Clarity Clear (Clear) 09/21/17 16:40 Urine pH 7.0 (5.0-8.0) 09/21/17 16:40 Ur Specific [place] 1.026 (1.003-1.030) 09/21/17 16:40 Urine Protein Negative mg/dL (NEGATIVE) 09/21/17 16:40 Urine Glucose (UA) 150 mg/dL (Normal) 09/21/17 16:40 Urine Ketones Negative mg/dL (NEGATIVE) 09/21/17 16:40 Urine Blood Negative (NEGATIVE) 09/21/17 16:40 Urine Nitrate Negative (NEGATIVE) 09/21/17 16:40 Urine Bilirubin Negative (NEGATIVE) 09/21/17 16:40 Urine Urobilinogen 0.2-1.0 mg/dL (0.2-1.0) 09/21/17 16:40 Ur Leukocyte Esterase Neg Yuli/uL (Negative) 09/21/17 16:40 Urine RBC (Auto) 3 /hpf (0-3) 09/21/17 16:40 Urine Microscopic WBC < 1 /hpf (0-5) 09/21/17 16:40 Blood Type O POSITIVE 09/24/17 06:30 Antibody Screen Negative 09/24/17 06:30 BBK History Checked Patient has bt 09/24/17 06:30 Discharge Exam - Head Exam Head Exam: NORMAL INSPECTION Discharge Plan - Follow Up Plan Condition: FAIR Disposition: HOME/ ROUTINE Instructions: Cholecystectomy, Open Surgery, Acute Abdominal Pain (DC), Acute Abdominal Pain (GEN) Additional Instructions: Follow up at Dr. El's office in 1-2 weeks. Low fat diet Take Augmentin by mouth with food Referrals: Justin El MD [Staff Provider] -
== END 2017-09-26 18:40 | disposition home or self-care (01) | DRG 419 ==
LOC: H.ER 09:03 → H.ERHOLD 15:55 → H.MEDSURG1 19:15 → OBSVTOIN 09-23 11:53 → H.MEDSURG1 09-23 17:58
PROVIDERS: ADMIT Internal Medicine Pulmonary Disease; ATTEND Internal Medicine Pulmonary Disease
PROC: 3E0F7GC Introduction of Other Therapeutic Substance into Respiratory Tract, Via Natural or Artificial Opening (ICD-10-PCS; 2017-09-22)
PROC: 0FT44ZZ Resection of Gallbladder, Percutaneous Endoscopic Approach (ICD-10-PCS; principal; 2017-09-24 10:00)
DX: K80.00 Calculus of gallbladder with acute cholecystitis without obstruction (principal); M06.9 Rheumatoid arthritis, unspecified; M19.90 Unspecified osteoarthritis, unspecified site; Z79.891 Long term (current) use of opiate analgesic; Z87.11 Personal history of peptic ulcer disease; Z87.891 Personal history of nicotine dependence; Z96.641 Presence of right artificial hip joint; Z96.652 Presence of left artificial knee joint; F41.9 Anxiety disorder, unspecified; Z79.899 Other long term (current) drug therapy; M54.5 Low back pain; J44.9 Chronic obstructive pulmonary disease, unspecified; K21.9 Gastro-esophageal reflux disease without esophagitis; K59.00 Constipation, unspecified

== ENCOUNTER 2018-06-14 13:14 | Emergency (ER) | payer MEDICARE ==
[2018-06-14 13:14] VITALS: BMI 30.2
[2018-06-14 13:38] VITALS: RESP 18
[2018-06-14] MEDS ORDERED: Albuterol-Ipratrop 3 mg / 0.5 (3 ml) UD INH STA ×2 (16:27→19:59)
[2018-06-14] MEDS ORDERED: Albuterol-Ipratrop 3 mg / 0.5 (3 ml) UD ONE ×2 (16:36→20:14)
--- NOTE | 2018-06-14 16:41 | ED PDOC ---
HPI: SOB/CHF/COPD Time Seen by Provider: 06/14/18 16:10 Chief Complaint (Nursing): Shortness Of Breath Chief Complaint (Provider): cough, SOB History Per: Patient Additional Complaint(s): 77 y/o M with hx of asthma, HTN, HL, DM who presents with persistent cough since 05/31/18. Pt states that he saw his PMD after having a cough for several days. He completed a course of Azithromycin 500mg PO daily x 7 days and Prednisone yesterday. He has also been using Advair with nebulizer TID with no real improvement in his symptoms. he states that he had a subjective fever 2 nights ago but did not measure his temperature. His SOB and cough are worse at night, requiring him to sleep in a chair. Denies C/P, dizziness, palpitations. Past Medical History Reviewed: Historical Data, Nursing Documentation, Vital Signs Vital Signs: Last Vital Signs Temp 98.2 F 06/14/18 13:36 Pulse 82 06/14/18 13:36 Resp 18 06/14/18 13:36 BP 128/82 06/14/18 13:36 Pulse Ox 99 06/14/18 13:36 - Medical History PMH: Anxiety (No medication for anxiety prescribed by MD), Arthritis, Asthma, Bronchitis, COPD, Rheumatoid Arthritis Denies: CHF, HIV, HTN, Hypercholesterolemia, Hypothyroidism, Chronic Kidney Disease - Family History Family History: States: Unknown Family Hx - Home Medications Home Medications: Ambulatory Orders Medication Instructions Recorded Albuterol 0.042% [Albuterol 0.042% 3 ml IH Q8 PRN 09/21/17 Inhal Ania (1.25mg/3ml) UD] Docusate [Colace] 200 mg PO DAILY 09/21/17 Esomeprazole Magnesium [Nexium] 40 mg PO DAILY 09/21/17 Fluticasone/Salmeterol 500/50 1 puff IH Q12 09/21/17 [Advair Diskus 500/50] Hydrocortisone [Proctosol-Hc] 1 appl [place] Q12 PRN 09/21/17 Loratadine [Claritin] 10 mg PO DAILY 09/21/17 Mometasone Furoate [Nasonex] 2 spray MICHELLE DAILY PRN 09/21/17 Montelukast [Singulair] 10 mg PO HS 09/21/17 Naloxegol Oxalate [Movantik] 12.5 mg PO DAILY 09/21/17 [id number] Ethyl Esters 1 GM 2 gm PO Q12 09/21/17 [Lovaza] Promethazine HCl/Codeine 10 ml PO Q4 PRN 09/21/17 [Prometh-Codein 6.25-10 mg/5 ml] - Allergies Allergies/Adverse Reactions: Allergies Allergy/AdvReac Type Severity Reaction Status Date / Time No Known Allergies Allergy Verified 07/18/17 17:11 Review of Systems Constitutional: Negative for: Fever, Chills, Sweats Cardiovascular: Negative for: Chest Pain, Palpitations Respiratory: Positive for: Cough, Shortness of Breath. Negative for: Pleuritic Pain Gastrointestinal: Negative for: Nausea, Vomiting Neurological: Negative for: Weakness Physical Exam - Reviewed Nursing Documentation Reviewed: Yes Vital Signs Reviewed: Yes - Physical Exam Appears: Positive for: Uncomfortable Head Exam: Positive for: ATRAUMATIC Skin: Positive for: Normal Color Eye Exam: Positive for: Normal appearance ENT: Positive for: Normal ENT Inspection Neck: Positive for: Normal Cardiovascular/Chest: Positive for: Regular Rate, Rhythm Respiratory: Positive for: Rhonchi, Wheezing (scattered rhonchi and wheezing B/L). Negative for: Accessory Muscle Use, Crackles, Respiratory Distress Gastrointestinal/Abdominal: Positive for: Normal Exam Neurologic/Psych: Positive for: Alert, Oriented - Laboratory Results Result Diagrams: 06/14/18 16:40 06/14/18 16:40 - ECG O2 Sat by Pulse Oximetry: 99 Medical Decision Making Medical Decision Making: CBC, CMP, rapid flu Chest PA and lateral DuoNeb 3mL x 3 Solu-Medrol 125mg IV x 1 CXR: No active disease. No significant interval change compared to the prior examination(s). 17:50: Re-evaluated: feeling better, Lungs: + wheeze B/L - slightly improved, Peak flow 350 from 200 pre treatments. ordered additional DuoNeb X 1. Trop and BNP ordered. Pt endorsed to AJ Pascual pending re-evaluation and Trop/BNP results. Disposition - Clinical Impression Clinical Impression: Asthma exacerbation, URI (upper respiratory infection) - Patient ED Disposition Is Patient to be Admitted: Transfer of Care - Disposition Disposition: Transfer of Care Disposition Time: 20:15 Condition: FAIR Forms: [employer] ([place])
[2018-06-14 17:00] LABS: BASO # 0.1 K/uL (0.0-0.2); BASO % 0.6 % (0.0-2.0); EOS # 0.1 K/uL (0.0-0.7); EOS % 0.5 % (0.0-4.0); LYMPH # 2.5 K/uL (1.0-4.3); LYMPH % 19.3 % (20.0-40.0); MEAN CELL VOLUME 94.7 fl (80.0-94.0); MEAN CORPUSCULAR HEMOGLOBIN 31.4 pg (27.0-31.0); MEAN CORPUSCULAR HGB CONC 33.1 g/dL (33.0-37.0); MEAN PLATELET VOLUME 7.6 fl (7.2-11.7); MONO # 1.1 K/uL (0.0-0.8); MONO % 8.6 % (0.0-10.0); NEUT # 9.3 K/uL (1.8-7.0); NRBC % 0.2 % (0.0-0.0); RBC 4.78 Mil/uL (4.40-5.90); WHITE BLOOD COUNT 13.2 K/uL (4.8-10.8)
[2018-06-14 17:09] LABS: ALBUMIN 3.6 g/dL (3.5-5.0); ALT/SGPT 51 U/L (21-72); AST/SGOT 36 U/L (17-59); BLOOD UREA NITROGEN 20 mg/dl (9-20); CALCIUM 8.9 mg/dL (8.4-10.2); GFR NON-AFRICAN AMERICAN 59
[2018-06-14] MEDS ORDERED: methylPREDNISolone 125 MG in Sodium Chloride 0.9% 50 ML IV STA (17:32)
--- NOTE | 2018-06-14 18:32 | RAD ---
Date of service: 06/14/2018 HISTORY: shortness of breath, cough COMPARISON: 09/21/2017 TECHNIQUE: Chest PA and lateral FINDINGS: LUNGS: No active pulmonary disease. PLEURA: No significant pleural effusion identified. No pneumothorax apparent. CARDIOVASCULAR: No aortic atherosclerotic calcification present. Normal cardiac size. No pulmonary vascular congestion. OSSEOUS STRUCTURES: No significant abnormalities. VISUALIZED UPPER ABDOMEN: Normal. OTHER FINDINGS: None. IMPRESSION: No active disease. No significant interval change compared to the prior examination(s).
[2018-06-14 21:32] LABS: B-TYPE NATRIURETIC PEPTIDE 236 pg/ml (0-900)
--- NOTE | 2018-06-14 22:07 | ED PDOC ---
- Laboratory Results Result Diagrams: 06/14/18 16:40 06/14/18 16:40 Lab Results: Troponin I < 0.0120 ng/mL (0.00-0.120) 06/14/18 20:56 NT-Pro-B Natriuret Pep 236 pg/ml (0-900) 06/14/18 20:56 Total Bilirubin 0.5 mg/dl (0.2-1.3) 06/14/18 16:40 AST 36 U/L (17-59) 06/14/18 16:40 ALT 51 U/L (21-72) 06/14/18 16:40 Alkaline Phosphatase 113 U/L (38-126) 06/14/18 16:40 Total Protein 7.1 G/DL (6.3-8.2) 06/14/18 16:40 Albumin 3.6 g/dL (3.5-5.0) 06/14/18 16:40 Globulin 3.5 gm/dL (2.2-3.9) 06/14/18 16:40 Albumin/Globulin Ratio 1.0 (1.0-2.1) 06/14/18 16:40 - ECG O2 Sat by Pulse Oximetry: 99 Disposition - Clinical Impression Clinical Impression: Asthma exacerbation, URI (upper respiratory infection) - POA Present On Arrival: None - Disposition Referrals: Alli Flores MD [Family Provider] - Disposition: Routine/Home Disposition Time: 22:08 Condition: FAIR Prescriptions: Levofloxacin [Levaquin] 750 mg PO DAILY #5 tablet Prednisone [Deltasone] 3 tab PO DAILY #12 tab Instructions: Asthma, Adult (DC) Print Language: SET[place]
[2018-06-14 22:33] VITALS: BP 122/82; PULSE 95; TEMP 98.1; O2SAT 95
--- NOTE | 2018-06-15 20:27 | CARD ---
APPROVED REPORT Date of service: 06/14/2018 EKG Measurement Heart [id number] <Conclusion> Normal sinus rhythm Normal ECG
== END 2018-06-14 23:21 | disposition home or self-care (01) ==
LOC: H.ER 13:14
DX: J45.901 Unspecified asthma with (acute) exacerbation (principal); J06.9 Acute upper respiratory infection, unspecified; E11.9 Type 2 diabetes mellitus without complications; I10 Essential (primary) hypertension; J44.9 Chronic obstructive pulmonary disease, unspecified; Z79.899 Other long term (current) drug therapy
CPT/HCPCS: 71046; 80053; 83880; 84484; 85025; 87804; 93005; 94150; 94640; 96374; 99285; J2930